=== PATIENT | female | born 1945 | race Caucasian/White ===

== ENCOUNTER → 2016-11-05 | Outpatient (CLI) | payer OTHER ==
[~2016-11-05] MED LIST: AMIO200T4 PO; ATOR-22 PO; CLOP1TAB15 PO; DILT-115 PO; DVN80 PO; ELQ25 PO; FENO48TA9 PO; HYDR-4717 PO; METO50TA16 PO; PANT40TA PO; RANI150T3 PO
[2016-11-05 13:40] VITALS: BP 175/78; PULSE 61; TEMP 37.2; O2SAT 95
--- NOTE | 2016-11-05 16:08 | Radiation Oncology Follow-Up ---
Radiation Oncology Follow-Up Date of Visit Nov 05, 2016. 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 She has noted no masses or tenderness and no change of the axilla. She's had no swelling of her arm. She is up-to-date on mammography. She had a mammogram at [facility] on 01/10/2016. This showed no evidence of breast malignancy. A diagnostic mammogram is recommended in 12 months. BI-RADS Category 2. Allergies Coded Allergies: No Known Allergies (Unverified , 06/08/13) Home Medications Scheduled Apixaban (Eliquis), 5 MG PO BID Atorvastatin (Lipitor), 20 MG PO DAILY Clopidogrel (Plavix), 75 MG PO DAILY Diltiazem Hcl Ext Rel (Tiazac), 240 MG PO DAILY Fenofibrate (Tricor), 48 MG PO DAILY Metoprolol Tartrate (Lopressor) (Lopressor), 1 TAB PO BID Pantoprazole (Protonix), 40 MG PO DAILY Ranitidine Hcl (Zantac), 150 MG PO BID Valsartan (Diovan), 1 TAB PO BID Scheduled PRN Hydralazine Hcl (Apresoline), 25 MG PO BID PRN for Hypertension Review of Systems Gastrointestinal: Symptoms: WNL Oral: Symptoms: No Problems Respiratory: Symptoms: WNL Other Respiratory: 12 Cigs per day Urinary: Symptoms: WNL Skin: Symptoms: No Problems Breast: Right Upper Arm Measurement: 26.8 Right Mid Arm Measurement: 23.0 Right Wrist Measurement: 16.4 Left Upper Arm Measurement: 27.0 Left Mid Arm Measurement: 23.8 Left Wrist Measurement: 16.5 Arm Dominence: Right Physical Exam Vital Signs Date Time Temp Pulse Resp B/P (MAP) Pulse Ox O2 Delivery O2 Flow Rate FiO2 11/05/16 13:40 37.2 61 16 175/78 95 Fatigue: None General Appearance: no apparent distress Eyes: normal inspection, EOMI ENT: normal ENT inspection, hearing grossly normal Neck: no adenopathy Respiratory/Chest: lungs clear, no respiratory distress, no accessory muscle use Breast: Breast examination reveals well-healed incisions of the left breast. There are no masses or tenderness and no axillary adenopathy. She has no skin retractions or nipple changes. Using the [place] score cosmesis she has a excellent outcome. The right breast showed no masses or tenderness and no axillary adenopathy. Cardiovascular: regular rate, rhythm, no gallop, no murmur Extremities: no pedal edema Neurologic/Psychiatric: no motor/sensory deficits, alert, normal mood/affect Skin: warm/dry Additional Studies Mammography as reviewed above. Assessment & Plan Plan: Continue with scheduled mammography. Continue follow-up with her breast surgeon and primary care physician. Today we discussed smoke cessation. We have previously discussed weaning off the cigarettes. Last year she was down to 9 cigarettes per day. Currently she is a 12. She felt that she is having increased stress. I did give her a card today about the 1 800 quit line. I also offered to refer her to a smoke cessation program. She did not wish to be referred at this time. She'll continue to try to wean off of cigarettes. We asked her to return to our office in 1 year. Total Time In Follow-Up I spent 20 minutes speaking to the patient performing the examination. I spent 15 minutes reviewing information completing this note. Copy To Matias Paiz M.D.; Skinny Mccord M.D. Problem Qualifiers (1) Breast cancer: Breast location: upper outer quadrant of breast Estrogen receptor status: negative Patient sex: female Laterality: left Qualified Codes: C50.412 - Malignant neoplasm of upper-outer quadrant of left female breast; Z17.1 - Estrogen receptor negative status [ER-]
== END | disposition home or self-care (01) ==
LOC: C.ONC 13:32
PROVIDERS: ATTEND Physician Assistant Medical
DX: Z08 Encounter for follow-up examination after completed treatment for malignant neoplasm (principal); Z92.3 Personal history of irradiation; Z85.3 Personal history of malignant neoplasm of breast

== ENCOUNTER 2021-09-17 05:14 | Inpatient (IN) ==
--- NOTE | 2021-09-10 12:14 | PAT Medication Instructions ---
Medication Instructions Date of Service September 10, 2021 Home Medications rivaroxaban 20 mg tablet (Xarelto) 20 mg PO DAILY buspirone 7.5 mg tablet 7.5 mg PO BID furosemide 20 mg tablet (Lasix) 20 mg PO QAM hydralazine 25 mg tablet 25 mg PO Q8H PRN Nausea And Vomiting lansoprazole 30 mg capsule,delayed release 30 mg PO QAM losartan 100 mg tablet 100 mg PO QAM ondansetron 4 mg disintegrating tablet 4 mg PO Q8H atorvastatin 20 mg tablet 20 mg PO QAM clopidogrel 75 mg tablet 75 mg PO QAM diltiazem HCl 240 mg capsule,24 hr,extended release 240 mg PO QAM metoprolol tartrate 100 mg tablet 100 mg PO BID nitrofurantoin macrocrystal 100 mg capsule 100 mg PO QAM Continue as directed nitrofurantoin macrocrystal 100 mg capsule 100 mg PO QAM ASK your prescriber and surgeon rivaroxaban 20 mg tablet (Xarelto) 20 mg PO DAILY clopidogrel 75 mg tablet 75 mg PO QAM DO NOT take the morning of surgery furosemide 20 mg tablet (Lasix) 20 mg PO QAM losartan 100 mg tablet 100 mg PO QAM Take morning of surgery With a small sip of water, OTHERWISE NOTHING TO EAT OR DRINK AFTER MIDNIGHT: buspirone 7.5 mg tablet 7.5 mg PO BID diltiazem HCl 240 mg capsule,24 hr,extended release 240 mg PO QAM metoprolol tartrate 100 mg tablet 100 mg PO BID ondansetron 4 mg disintegrating tablet 4 mg PO Q8H PRN Nausea and Vomiting (if needed) atorvastatin 20 mg tablet 20 mg PO QAM hydralazine 25 mg tablet 25 mg PO TID lansoprazole 30 mg capsule,delayed release 30 mg PO QAM Take evening before surgery buspirone 7.5 mg tablet 7.5 mg PO BID metoprolol tartrate 100 mg tablet 100 mg PO BID ondansetron 4 mg disintegrating tablet 4 mg PO Q8H PRN Nausea and Vomiting (if needed) hydralazine 25 mg tablet 25 mg PO TID Other Notes If you have any questions please call us at [phone] or [phone] or [phone] or [phone]
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
[2021-09-17] MEDS ORDERED: CEFAZOLIN 1,000 MG/7.5 ML SYR IV SCH (06:00)
[2021-09-17] MEDS ORDERED: SODIUM CHLORIDE 0.9% 1000ML 1,000 ML IV SCH (06:00)
[2021-09-17 06:22] LABS: Calcium 9.2 mg/dl (8.5-10.1); Creatinine Clr Calc Pharmacy 41.7 ml/min; Est GFR (African American) 62.5 ml/min; Est GFR (Non-African American) 53.9 ml/min; Potassium 4.1 mmol/L (3.5-5.1)
[2021-09-17] MEDS ORDERED: NITROGLYCERIN/D5W 100MCG/ML 20ML SYR ONE (06:45)
[2021-09-17] MEDS ORDERED: HEPARIN (PORCINE) 1000 UNIT/ML 10 ML (CATH LAB USE ONLY) ONE (06:59)
[2021-09-17] MEDS ORDERED: LIDOCAINE 1% LOCAL 20 ML VIAL ONE (06:59)
[2021-09-17] MEDS ORDERED: ceFAZolin 330 MG/ML 1 GM VIAL ONE (06:59)
[2021-09-17] MEDS ORDERED: GELATIN SPONGE SZ 100 ONE (07:00)
[2021-09-17] MEDS ORDERED: THROMBIN FOR SOLN 20000 UNIT KIT ONE (07:00)
[2021-09-17] MEDS ORDERED: EPINEPHrine INJ 1 MG/ML AMP ONE (07:00)
[2021-09-17] MEDS ORDERED: BUPIVACAINE 0.5 % 5 MG/1 ML MPF 30ML VIAL ONE (07:00)
[2021-09-17] MEDS ORDERED: PROPOFOL IV EMULSION 10 MG/ML 20 ML VIAL IV ONE ×2 (07:12→09:08)
[2021-09-17] MEDS ORDERED: fentaNYL citrate 100 MCG/2 ML VIAL ONE (07:12)
[2021-09-17] MEDS ORDERED: HEPARIN SOD (PORCINE) 1000 UNIT/ML ONE (07:12)
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
[2021-09-17] MEDS ORDERED: ROCURONIUM BROMIDE 10 MG/ML 5 ML VIAL IV ONE (08:04)
[2021-09-17] MEDS ORDERED: ePHEDrine sulfate 50 MG/ML SYR ONE (08:04)
[2021-09-17] MEDS ORDERED: LIDOCAINE 2% 2 ML VIAL/AMP(20MG/ML) INFIL ONE (08:04)
[2021-09-17] MEDS ORDERED: DEXAMETHASONE SOD INJ 4 MG/ML VIAL ONE (09:19)
[2021-09-17] MEDS ORDERED: ONDANSETRON INJ 2 MG/ML 2 ML VIAL ONE (09:19)
[2021-09-17] MEDS ORDERED: NEOSTIGMINE METHYLSULFATE 1 MG/ML 10ML VIAL ONE (09:21)
--- NOTE | 2021-09-17 09:45 | Operative Report ---
Post Operative Report Pre & Post Diagnosis Operation Date: 09/17/21 07:30 Pre-Op Diagnosis: Stenosis of Left Internal Carotid Artery Post-Op Diagnosis: Stenosis of Left Internal Carotid Artery I identified the patient and participated in the time-out.: Yes Procedure Operation Date: 09/17/21 07:30 Actual Procedures p Left Interanl Carotid Endarterectomy with bovine patch(Left) - Gonzalo Starks MD Surgeon Goznalo Starks MD Anaesthetic Technician none Estimated Blood Loss 100 Findings Consistent with Post-Op Diagnosis Specimens plaque Anesthesia Type General Complications none Disposition Accompanied Patient To Recovery: Yes Disposition: Recovery Room Indications Patient is a 76yo female with severe bilateral carotid artery stenosis. Left carotid was recommended being it was the tighter of the two carotids. I have discussed the risks options and benefits of the procedure with the patient. The patient understands the risks options and benefits and agrees to the procedure. Description of Procedure The patient was taken to the operating room and placed in supine position. After general anesthesia was accomplished the left side of the neck was prepped and draped in a sterile manner. The patient was identified and a timeout performed. A longitudinal neck incision was then made coursing along the medial border of the sternocleidomastoid muscle. The incision was taken down through the platysmal layer. The facial vein was identified, ligated, and divided. The common carotid artery was then seen. It was dissected free down to the omohyoid muscle. The dissection was carried upward until the external carotid artery and superior thyroid artery was seen. The superior thyroid artery was slung with a 2-0 silk suture. The external carotid was slung with a red rubber vessel loop. Next the dissection was carried up along the internal carotid artery. This was carried upward to beyond the area of narrowing. The hypoglossal nerve was seen and preserved. The patient was heparinized. After adequate heparinization was accomplished, the internal, external, and common carotid arteries were clamped. A longitudinal arteriotomy was started on the common carotid artery and extended upward along the internal carotid artery to a point beyond the area of narrowing. There was calcified plaque of the internal carotid artery origin causing approximately 85-90% narrowing. A Sundt shunt was then placed in the internal, followed by the common carotid artery and held in place with Abdias clamps. There was good back bleeding seen from the internal carotid artery. The endarterectomy was then started in the appropriate plane on the common carotid artery. This was carried upward and the external carotid was everted and endarterectomized. The endarterectomy was then carried up along the internal carotid artery till a nice feathering breakoff point was accomplished beyond the end of the plaque. The endarterectomy was then carried down further on the common carotid artery. At end of the arteriotomy, the plaque was then transected. Under loop magnification, all loose debris and flaps werer removed. There is no distal flap seen at the end of the endarterectomy site. The arteriotomy then closed using a bovine patch and a running 6-0 prolene suture. This was done in the usual vascular fashion. Prior to completing the closure, the Sundt shunt was removed and the internal and common carotid arteries were reclamped. Backbleeding and forward bleeding was allowed to occur. The flow surface was irrigated with heparinized saline. The final few sutures were then placed and securely tied. Clamps were then removed off the external and common carotid arteries. The clamp was then removed the internal carotid artery. Good distal flow was seen. Adequate hemostasis was seen of the patch. The wound was inspected and adequate hemostasis was obtained. The wound was irrigated with antibiotic solution. It was then closed with a running 3-0 Vicryl suture for the platysmal layer and a 4-0 subcuticular Vicryl suture for the skin edges. Dermabond was used for dressing. The patient left the operation room in satisfactory condition and tolerated the procedure well. All needle and sponge counts were correct at the end of the procedure. I attest to the content of the Intraoperative Record and any orders documented therein. Any exceptions are noted below.
[2021-09-17] MEDS ORDERED: FLUMAZENIL 0.1 MG/1 ML 10 ML VIAL IV PRN (09:53)
[2021-09-17] MEDS ORDERED: NALOXONE HCL 0.4 MG/1 ML VIAL/CARP IV PRN (09:53)
[2021-09-17] MEDS ORDERED: ATROPINE SULFATE 0.1 MG/ML 10ML SYR IV PRN (09:53)
[2021-09-17] MEDS ORDERED: ePHEDrine sulfate 50 MG/ML AMP IV PRN (09:53)
[2021-09-17] MEDS ORDERED: fentaNYL citrate 100 MCG/2 ML VIAL IV PRN (09:53)
[2021-09-17] MEDS ORDERED: ONDANSETRON INJ 2 MG/ML 2 ML VIAL IV PRN (09:53)
[2021-09-17] MEDS ORDERED: PROMETHAZINE HCL 12.5 MG in SODIUM CHLORIDE 0.9% 50 ML IV PRN (09:53)
--- NOTE | 2021-09-17 10:19 | Anesthesiology Progress Note ---
Date of Service September 17, 2021 Anesthesia Post Procedure Vital Signs Vital Signs: Temp Pulse Pulse Resp BP BP Pulse Ox 09/17/21 10:10 60 21 174/51 H 157/64 H 96 09/17/21 10:00 60 22 172/55 H 166/61 H 100 09/17/21 09:50 60 17 166/49 H 164/61 H 100 09/17/21 09:44 36.0 C L 60 12 169/70 H 100 09/17/21 05:42 36.2 C L 59 L 20 150/60 H 93 O2 Del Method O2 Flow Rate 09/17/21 10:10 Room Air 09/17/21 10:00 Oxymask 6 09/17/21 09:50 Oxymask 6 09/17/21 09:44 Oxymask 6 09/17/21 05:42 Room Air Transfer of Care Handoff Completed per policy Notes Mental Status: alert / awake / arousable Patient Amnestic to Procedure: Yes Nausea / Vomiting: adequately controlled Pain: adequately controlled Airway Patency, RR, SpO2: stable & adequate BP & HR: stable & adequate Hydration State: stable & adequate Anesthetic Complications: no major complications apparent
[2021-09-17] MEDS ORDERED: D5W AND 1/2NSS 1,000 ML IV SCH (11:48)
[2021-09-17] MEDS ORDERED: MoRPHine SULFATE 4 MG/ML 1 ML CARP\\VIAL IV PRN (11:48)
[2021-09-17] MEDS ORDERED: ONDANSETRON 4 MG OD TAB PO PRN (11:48)
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
[2021-09-17] MEDS: hydrALAZINE HCL 25 MG TAB PO SCH ×2 (13:50→20:52)
[2021-09-17] MEDS: ceFAZolin 1000MG 1,000 MG/7.5 ML SYR IV SCH ×2 (13:51→22:04)
[2021-09-17] MEDS ORDERED: LOSARTAN POTASSIUM 50 MG TAB PO ONE (14:15)
[2021-09-17] MEDS: oxyCODONE/ACETAMINOPHEN 5mg/325mg TAB PO PRN ×2 (15:00→22:03)
[2021-09-17] MEDS ORDERED: nitrofurantoin macrocrystaL 50 MG CAP PO SCH (18:00)
[2021-09-17] MEDS: METOPROLOL TARTRATE 100 MG TAB PO SCH (20:51)
[2021-09-17] MEDS: busPIRone 7.5 MG TAB PO SCH (20:52)
[2021-09-17] MEDS ORDERED: ATORVASTATIN 20 MG TAB PO SCH (21:00)
[2021-09-18] MEDS: oxyCODONE/ACETAMINOPHEN 5mg/325mg TAB PO PRN (05:28)
[2021-09-18 05:42] LABS: Basophils # (auto) 0.03 K/uL (0-0.2); Basophils % (auto) 0.3 %; Hematocrit (blood only) 33.6 % (34.1-44.9); Hemoglobin 10.7 g/dl (12.0-16.0); Immature Granulocytes # (auto) 0.05 K/uL (0.00-0.02); Immature Granulocytes % (auto) 0.4 %; Mean Corpuscular Hemoglobin 31.5 pg (25.0-34.0); Mean Corpuscular Hgb Conc 31.8 g/dL (32.0-36.0); Mean Corpuscular Volume 98.8 fL (80.0-100.0); Mean Platelet Volume 10.9 fL (9.4-12.3); Monocytes # (auto) 0.69 K/uL (0.24-0.82); Neutrophils # (auto) 9.87 K/uL (1.4-6.5); Neutrophils % (auto) 86.3 %; Platelet Count 194 K/uL (130-400); RDW Coefficient of Variation 14.6 % (11.5-14.5); RDW Standard Deviation 52.9 fL (36.4-46.3); White Blood Count 11.44 K/ul (4.8-10.8)
[2021-09-18 06:00] LABS: BUN Creatinine Ratio 21.5 (10-20); Calcium 8.5 mg/dl (8.5-10.1); Creatinine Clr Calc Pharmacy 52.8 ml/min; Est GFR (African American) 83.1 ml/min; Est GFR (Non-African American) 71.7 ml/min; Magnesium 1.9 mg/dl (1.7-2.4); Phosphorus 3.4 mg/dl (2.5-4.9); Potassium 4.3 mmol/L (3.5-5.1)
[2021-09-18 06:05] VITALS: TEMP 97.9
[2021-09-18] MEDS: busPIRone 7.5 MG TAB PO SCH (07:27)
[2021-09-18] MEDS: METOPROLOL TARTRATE 100 MG TAB PO SCH (07:27)
[2021-09-18] MEDS: hydrALAZINE HCL 25 MG TAB PO SCH (07:28)
--- NOTE | 2021-09-18 07:58 | Critical Care Progress Note ---
Date of Service September 18, 2021 Assessment & Plan (1) Carotid artery disease: (2) Hypertension: (3) Hypercholesteremia: Plan Impression: 76-year-old female with asymptomatic carotid stenosis, postop day 1 left carotid endarterectomy. Recommendations: 1. Left carotid endarterectomy: Postoperative management per vascular surgery. 2. Hypertension: Continue antihypertensives with blood pressure goals as delineated by vascular surgery. 3. Hyperlipidemia: Continue lipid-lowering agent. 4. Mild anemia and leukocytosis. Suspect reactive. No indication for transfusion. Continue to follow clinically. She is afebrile. Can discontinue arterial line at this point in time. Patient's critical care issues appear to have resolved. We will sign off at this point time. Feel free to contact us if we can be of additional assistance. Admission and Anticipated Discharge Date Admission Date: September 17, 2021 Subjective Patient seen and examined. EMR reviewed. Discussed with bedside critical care nurse. The patient is up eating breakfast in the chair this morning. She is complaining of some mild tenderness in her neck. No voice changes or swallowing difficulties. No new neurological complaints. She just took her blood pressure medicines this morning. Review of Systems Review of Systems: All systems reviewed & are unremarkable except as noted in Subjective Physical Exam Constitutional: WD/WN, vitals as above Neck: trachea midline, no thyromegaly Respiratory: normal respiratory effort, lungs clear to auscultation Cardiovascular: RRR, no murmur, no edema Gastrointestinal (Abdomen): normal bowel sounds, soft, nontender, no hepatosplenomegaly Musculoskeletal: Extremities: extremities normal to inspection Skin: no rashes, warm and dry Lymphatic: no cervical lymphadenopathy Results & Data Results & Data ([facility]) Vital Signs (Past 12 Hours) Vital Signs Temp Pulse Pulse Resp BP BP BP 09/18/21 07:45 63 20 09/18/21 07:30 63 16 09/18/21 07:15 60 17 09/18/21 07:14 62 14 09/18/21 07:14 166/89 H 09/18/21 07:00 60 18 09/18/21 07:00 36.6 C 64 18 184/87 H 166/89 H 09/18/21 06:00 36.6 C 61 16 09/18/21 05:00 60 18 09/18/21 04:30 61 16 09/18/21 04:00 62 19 09/18/21 04:00 134/65 09/18/21 03:30 61 16 09/18/21 03:00 60 16 09/18/21 02:30 64 15 09/18/21 02:00 60 15 09/18/21 02:00 152/74 H 09/18/21 01:00 60 11 L 09/18/21 00:30 63 10 L 09/18/21 00:01 60 18 09/18/21 00:01 143/60 H 09/18/21 00:00 60 18 09/17/21 23:00 36.5 C 60 16 09/17/21 23:39 60 09/17/21 22:00 36.5 C 60 18 09/17/21 22:00 126/56 L 09/17/21 21:30 64 18 09/17/21 21:10 09/17/21 20:30 60 16 09/17/21 20:00 60 20 09/17/21 20:00 111/54 L Pulse Ox O2 Del Method 09/18/21 07:45 90 09/18/21 07:30 93 09/18/21 07:15 91 09/18/21 07:14 91 09/18/21 07:14 09/18/21 07:00 90 09/18/21 07:00 90 Room Air 09/18/21 06:00 90 09/18/21 05:00 90 09/18/21 04:30 92 09/18/21 04:00 09/18/21 04:00 09/18/21 03:30 93 09/18/21 03:00 91 09/18/21 02:30 90 09/18/21 02:00 90 09/18/21 02:00 09/18/21 01:00 92 09/18/21 00:30 92 09/18/21 00:01 93 09/18/21 00:01 09/18/21 00:00 93 09/17/21 23:00 91 09/17/21 23:39 09/17/21 22:00 93 Room Air 09/17/21 22:00 09/17/21 21:30 90 Room Air 09/17/21 21:10 92 09/17/21 20:30 94 09/17/21 20:00 92 09/17/21 20:00 Laboratory Results 09/18/21 05:21 09/18/21 05:21 Diagnostic Findings No new imaging Coding Level of Care Code 33750 Subseq Hosp Care Lvl 2 Diagnoses Carotid artery disease I77.9 Hypertension I10 Hypercholesteremia E78.00
[2021-09-18] MEDS ORDERED: LOSARTAN POTASSIUM 50 MG TAB PO SCH (09:00)
[2021-09-18] MEDS ORDERED: PANTOprazole 40 MG TAB PO SCH (09:00)
[2021-09-18] MEDS ORDERED: CLOPIDOGREL BISULFATE 75 MG TAB PO SCH (09:00)
[2021-09-18] MEDS ORDERED: dilTIAZem HCL 240 MG CAPCR PO SCH (09:00)
[2021-09-18] MEDS ORDERED: RIVAROXABAN 20 MG TAB PO SCH (09:00)
[2021-09-18] MEDS ORDERED: FUROSEMIDE 20 MG TAB PO SCH (09:00)
--- NOTE | 2021-09-18 10:39 | Surgery Progress Note ---
Date of Service September 18, 2021 Assessment & Plan (1) S/P carotid endarterectomy: Plan: Patient doing well post op CEA. D/C today Admission and Anticipated Discharge Date Admission Date: September 17, 2021 Subjective Patient without complaint. No problems swallowing and eating. No speech difficulty. No focal deficits. Physical Exam Constitutional: WD/WN, vitals as above Neck: trachea midline Skin: + incision (dry and clean) Neurologic: CN's II-XI intact bilaterally and moves all extremities Psychiatric: A+Ox3, euthymic affect Results & Data ([facility]) Vital Signs (Past 12 Hours) Vital Signs Temp Pulse Pulse Resp BP BP BP 09/18/21 08:00 09/18/21 08:00 63 09/18/21 08:00 68 09/18/21 07:45 63 20 09/18/21 07:30 63 16 09/18/21 07:15 60 17 09/18/21 07:14 62 14 09/18/21 07:14 166/89 H 09/18/21 07:00 60 18 09/18/21 07:00 36.6 C 64 18 184/87 H 166/89 H 09/18/21 06:00 36.6 C 61 16 09/18/21 05:00 60 18 09/18/21 04:30 61 16 09/18/21 04:00 62 19 09/18/21 04:00 134/65 09/18/21 03:30 61 16 09/18/21 03:00 60 16 09/18/21 02:30 64 15 09/18/21 02:00 60 15 09/18/21 02:00 152/74 H 09/18/21 01:00 60 11 L 09/18/21 00:30 63 10 L 09/18/21 00:01 60 18 09/18/21 00:01 143/60 H 09/18/21 00:00 60 18 09/17/21 23:00 36.5 C 60 16 09/17/21 23:39 60 Pulse Ox O2 Del Method 09/18/21 08:00 Room Air 09/18/21 08:00 09/18/21 08:00 09/18/21 07:45 90 09/18/21 07:30 93 09/18/21 07:15 91 09/18/21 07:14 91 09/18/21 07:14 09/18/21 07:00 90 09/18/21 07:00 90 Room Air 09/18/21 06:00 90 09/18/21 05:00 90 09/18/21 04:30 92 09/18/21 04:00 09/18/21 04:00 09/18/21 03:30 93 09/18/21 03:00 91 09/18/21 02:30 90 09/18/21 02:00 90 09/18/21 02:00 09/18/21 01:00 92 09/18/21 00:30 92 09/18/21 00:01 93 09/18/21 00:01 09/18/21 00:00 93 09/17/21 23:00 91 09/17/21 23:39
[2021-09-18 10:48] VITALS: O2SAT 92
[2021-09-18 10:55] VITALS: BP 166/89; PULSE 64
--- NOTE | 2021-09-21 10:38 | Discharge Summary ---
Date of Service September 21, 2021 Admission HPI Per Admitting Provider Name: ANDREWS RODRIGUEZ Patient Number: [id number] : 1945 Date of Service: 09/03/2021 Chief Complaint: _New patient consultation for carotid stenosis HPI: _Mrs. Rodriguez is an elderly female who presents to Dr. Starks's vascular surgery clinic today for a new patient consultation regarding carotid stenosis. Patient states she has known for some years that she has some degree of carotid stenosis, but was advised to see Dr. Starks after her most recent ultrasound and CTA indicated some worsening of her carotid disease. Patient denies any history of CVA or TIA in the past. She also denies any recent symptoms of dizziness, amaurosis, unilateral headache, unilateral extremity weakness numbness or tingling, difficulty speaking or swallowing, sudden onset confusion, facial droop. She also denies fever, chest pain, shortness of breath, Abdominal pain, nausea, vomiting, rest pain, claudication, nonhealing wounds or ulcers other complaints. She does state that she was told in the past she has a blockage in an artery in her right leg, but that it did not need to have any surgery since she was not having any problems walking. Review of systems: A total of 14 systems were reviewed and are negative aside from what is related in her HPI Imaging: Patient underwent a carotid ultrasound which indicates significant stenosis of her bilateral internal carotid arteries, as well as her right common carotid artery. She then underwent a CTA which demonstrates 85 to 90% stenosis of her left ICA, and about 75 to 80% stenosis of her right common carotid artery. Current Home Meds: (Last Updated 09/03 15:35) atorvastatin (atorvastatin 20 mg oral tablet) 20 mg PO qhs busPIRone (busPIRone 7.5 mg oral tablet) take 1 tablet by mouth twice a day clopidogrel (clopidogrel 75 mg oral tablet) take 1 tablet by mouth once daily dilTIAZem (DilTIAZem (Eqv-Cardizem CD) 240 mg/24 hours oral capsule, extended release) take 1 capsule by mouth once daily furosemide (furosemide 20 mg oral tablet) take 1 tablet by mouth once daily hydrALAZINE (hydrALAZINE 25 mg oral tablet) take 1 tablet by mouth three times a day lansoprazole (lansoprazole 30 mg oral delayed release capsule) 30 mg PO Daily losartan (losartan 100 mg oral tablet) take 1 tablet by mouth once daily metoprolol (Metoprolol Tartrate 100 mg oral tablet) take 1 tablet by mouth twice a day nitrofurantoin (nitrofurantoin macrocrystals-monohydrate 100 mg oral capsule) take 1 capsule by mouth every 12 hours ondansetron (ondansetron 4 mg oral tablet) take 1 tablet by mouth every 8 hours if needed for nausea rivaroxaban (Xarelto 20 mg oral tablet) 20 mg PO qPM Allergies and Sensitivities: irbesartan(Rash) spironolactone(Rash) sotalol(Edema of lower extremity) sotalol(Hypertension) Past Medical History: Problems: Carotid stenosis Atrial fibrillation Hypertension Coronary artery disease Gastroesophageal reflux disease Hyperlipidemia Breast cancer Surgical history: Positive for breast biopsy, lumpectomy, colonoscopy, lymph node removal Family history: Positive for coronary artery disease, hypertension, diabetes. Social history: Patient smoked 1/2 to 1 pack of cigarettes daily for 50 years. She does not drink alcohol or use illicit drugs. OBJECTIVE Vitals: Last Updated 09/03/21 15:39 Date Temp BP Location Pulse RR SpO2 Pain 09/03/21 216/84 Right Arm 60 98 Vital Signs are the last 3 documented. No Orthostatic Data Available Height and Weight: Last Updated 09/03/21 15:39 Date BMI Wt(kg) Wt(lb) Method Ht(cm) (ft-in) Method 09/03/21 70.8 156 Standing Scale Heights and Weights are the last 3 documented. Physical Exam Constitutional: In general patient is a healthy-appearing well-nourished well- developed elderly female no distress. She is alert and oriented without any focal deficits. Head is normocephalic and atraumatic. Her neck is supple nontender with midline trachea. She does have bilateral carotid bruits. Her heart is regular, her lungs are decreased but clear throughout. Her abdomen is soft nontender with normoactive bowel sounds in 4 quadrants. There is no pulsatile mass appreciable. Her brachial radial and femoral pulses are +3. Her right posterior tibial pulse is +3, her DP is +1. Her left DP and PT pulses are +2. She has brisk capillary refill and no sign of distal ischemia. She does have mild edema at the ankles and some signs of venous insufficiency. ASSESSMENT: _ PLAN: _ 1 ) _carotid stenosis Patient is asymptomatic from her carotid stenosis, but appears to have at least 85 to 90% stenosis of her left ICA, as well as 75 to 80% stenosis of her right common carotid artery. Dr. Starks also reviewed the patient's imaging and recommends that patient undergo a left carotid endarterectomy procedure. The procedure, risks, benefits and alternatives were discussed with the patient by Dr. Starks and myself. Patient is agreeable to the procedure. We will contact her mobile marketing specialist for cardiac clearance, as well as perioperative Xarelto recommendations. Patient was advised to call our office with any other questions or concerns. Thank you for letting us participate in the care of this patient. Signature Line Electronic Signature on File CC: Andrew Servin MD [facility] [place] [id number] * CC: Skinny Mccord MD [address] [place] [address] * Electronically Reviewed/Signed by: Giselle De La Cruz PA-C Author Signature Dt/Tm:09/03/2021 05:01 PM [facility] [address] [facility] [address] [id number] Electronically Reviewed/Signed by: Gonzalo Starks MD Cosigner Signature Dt/Tm: 09/04/2021 07:31 AM Net Rep[employer]r [address] [address] LM Result Type: HVI Outpt Note Date of Service: September 03, 2021 16:53 EDT Authorization Status: Final Author or Import Date: ANDRE De La Cruz Lynn on September 03, 2021 17:01 EDT Verified By: MD Starks Eugene J on September 04, 2021 07:31 EDT Encounter info: [id number], [place] [address], Clinic, 09/03/2021 - 09/03/2021 Admission Exam Per Admitting Provider Constitutional: In general patient is a healthy-appearing well-nourished well- developed elderly female no distress. She is alert and oriented without any focal deficits. Head is normocephalic and atraumatic. Her neck is supple nontender with midline trachea. She does have bilateral carotid bruits. Her heart is regular, her lungs are decreased but clear throughout. Her abdomen is soft nontender with normoactive bowel sounds in 4 quadrants. There is no pulsatile mass appreciable. Her brachial radial and femoral pulses are +3. Her right posterior tibial pulse is +3, her DP is +1. Her left DP and PT pulses are +2. She has brisk capillary refill and no sign of distal ischemia. She does have mild edema at the ankles and some signs of venous insufficiency. Principal Diagnosis Left internal carotid artery stenosis Left carotid endarterectomy Discharge Exam Constitutional WD/WN, vitals as above Neck trachea midline Skin + incision (dry and clean) Neurologic CN's II-XI intact bilaterally and moves all extremities Psychiatric A+Ox3, euthymic affect Discharge Data Allergies Allergy/AdvReac Type Severity Reaction Status Date / Time sotalol [From Betapace] AdvReac Severe Increases Verified 09/17/21 05:41 BP, Swelling in Legs & Feet spironolactone AdvReac Severe Rash on Verified 09/17/21 05:41 lower legs irbesartan AdvReac Intermediate Itchy Rash Verified 09/17/21 05:41 Consultations 09/17/21 11:48 Consult Race Engine Builder Routine Procedures Performed Operation Date: 09/17/21 07:30 Actual Procedures p Left Interanl Carotid Endarterectomy(Left) - Gonzalo Starks MD Hospital Course (1) S/P carotid endarterectomy: Patient doing well post op CEA. D/C today Total Time Total Time Spent Total Time Spent (In Minutes): 0 Discharge Plan Discharge Items Patient Disposition: Home - Self-Care Reason For Visit: Occlusion and Stenosis or Carotid Artery Discharge Diagnosis: Left internal carotid stenosis, left carotid endarterectomy Activity: Per Instructions section Non-emergency contact: Surgeon Call non-emergency contact if: your temperature is above 101.5, your wound has increased redness, your wound has increased drainage and your wound pain has increased Follow-up/Referrals: Skinny Mccord [Primary Care Provider] - (Follow up appointment scheduled with HELLEN Arauz.) Thais Cordoba CRNP [Outside Practitioners] - 09/26/21 3:00 pm (Please follow up with HELLEN Arauz on Friday09/26/21 at 3:00 pm. Please arrive to the office at 2:45 pm for your appointment. If you are unable to keep this appointment, please call the office to reschedule at [phone].) Diet: Heart Healthy Addtl Attending Provider Instructions: SPECIAL CARE INSTRUCTIONS: Medications: * Continue to take Aspirin as directed. Incision Care: * You may shower, but do not rub incision. You may let the warm soapy water run over it. Be sure to dry the incision well after bathing. * Do not shave directly over the incision until it is healed. * DO NOT IMMERSE THE INCISION IN A TUB/POOL/etc. UNTIL HEALED. Restrictions: * Do not drive for at least one week or if you are still taking any narcotic pain medication. * Do not lift anything heavier than a gallon of milk for one week after going home. Possible Complications: * Numbness - It is normal to have some numbness around the incision. Numbness can extend beyond the incision to areas of the neck, ear and face. The numbness is due to bruising of nerves during the surgery and will gradually improve over a period of months. * Hoarseness/Difficulty Speaking and Swallowing - The bruising of nerves in the neck can also cause a hoarse voice, difficulty speaking or swallowing. This may improve over time, HOWEVER, if it continues for more than a few days please contact our office ([phone]). * Excessive Swelling - There will be some swelling immediately after surgery which usually resolves within one week. If you notice that the swelling is getting worse, notify your surgeon ([phone]). * Drainage/Bleeding - If there is any drainage or bleeding, it should be a very small amount (less than a teaspoon per day). If you have excessive bleeding or drainage from the incision, call your surgeon ([phone]) right away. ACTIVATION OF EMERGENCY MEDICAL SYSTEM: Call 911, immediately, if you experience any of the following: Warning Signs and Symptoms of Stroke: * Sudden numbness or weakness of the face, arm or leg, especially on one side of the body * Sudden confusion, trouble speaking or understanding * Sudden trouble seeing in one or both eyes * Sudden trouble walking, dizziness, loss of balance or coordination * Sudden severe headache with no cause Do not delay calling 911 if you experience any warning signs or symptoms of a stroke. Delay in seeking medical attention may affect what treatments can be given to you. Risk Factors for Stroke: You can reduce your chances of stroke by working with your medical provider to adopt a healthy lifestyle. Some specific ways to lower your chance of stroke are: * If you are a smoker, now is the time to stop smoking cigarettes * If you are diabetic, improve the control of your blood sugars * Avoid excessive amounts of alcohol * Control high blood pressure * Lose weight if you are overweight * Be sure to lead an active lifestyle * Eat a healthy diet low in salt, cholesterol and fat You should know about other risk factors for stroke that you are unable to control. These include: * Age 55 years or older * Male gender * Certain racial groups: , or / * Family History of Stroke, Mini stroke or Heart Attack * Sickle Cell Disease You will be receiving a call from the Vascular Surgery Nurse after you are discharged. FOLLOW UP VISIT: It is important for you to keep your follow up appointments with your medical provider. Keep any scheduled doctor appointments. Call [phone] to schedule a follow up appointment if one not already scheduled. Pending Studies at Discharge: No Stand-Alone Forms: My [facility], Smoking Cessation Medications and DC Order Prescriptions: New tramadol 50 mg tablet 50 mg PO Q12H PRN (Reason: pain) Qty: 7 0RF Continued rivaroxaban [Xarelto] 20 mg tablet 20 mg PO DAILY hydralazine 25 mg tablet 25 mg PO TID furosemide [Lasix] 20 mg tablet 20 mg PO QAM losartan 100 mg tablet 100 mg PO QAM buspirone 7.5 mg tablet 7.5 mg PO BID lansoprazole 30 mg capsule,delayed release(DR/EC) 30 mg PO QAM ondansetron 4 mg tablet,disintegrating 4 mg PO Q8H PRN (Reason: Nausea And Vomiting) nitrofurantoin macrocrystal 100 mg capsule 100 mg PO DAILY Rx Instructions: taken around 6 pm per pt, must administer with a meal/food atorvastatin 20 mg Tablet 20 mg PO QPM metoprolol tartrate 100 mg Tablet 100 mg PO BID diltiazem HCl 240 mg Capsule,Extended Release 24 Hr 240 mg PO QAM clopidogrel 75 mg Tablet 75 mg PO QAM Discharge Orders: Discharge Order (Routine); Ordered 09/18/21 Ordered By: Gonzalo Soares/Other Patient Handouts: Having Carotid Endarterectomy, Carotid EndarterectomyDc, Carotid Artery Disease Admission Data Admit Date/Time: 09/17/21 07:17 Attending Provider: Gonzalo Starks Admit Provider: Gonzalo Starks Primary Care Provider: Skinny Mccord Other Providers: Urbano Paredes ; Breezy Asencio ; Leandro Wells ; Rex Hendricks ; Fracisco Drake ; Jose Miguel Ross ; Tigre Mallory ; John Small ; Sandy Carroll Other Interventions: Discharge Summary Assessment (RN) Last Done: 09/18/21 10:52
--- NOTE | 2021-09-24 08:33 | Discharge Summary ---
Date of Service September 24, 2021 Admission HPI Per Admitting Provider Name: ANDREWS RODRIGUEZ Patient Number: [id number] : 1945 Date of Service: 09/03/2021 Chief Complaint: _New patient consultation for carotid stenosis HPI: _Mrs. Rodriguez is an elderly female who presents to Dr. Starks's vascular surgery clinic today for a new patient consultation regarding carotid stenosis. Patient states she has known for some years that she has some degree of carotid stenosis, but was advised to see Dr. Starks after her most recent ultrasound and CTA indicated some worsening of her carotid disease. Patient denies any history of CVA or TIA in the past. She also denies any recent symptoms of dizziness, amaurosis, unilateral headache, unilateral extremity weakness numbness or tingling, difficulty speaking or swallowing, sudden onset confusion, facial droop. She also denies fever, chest pain, shortness of breath, Abdominal pain, nausea, vomiting, rest pain, claudication, nonhealing wounds or ulcers other complaints. She does state that she was told in the past she has a blockage in an artery in her right leg, but that it did not need to have any surgery since she was not having any problems walking. Review of systems: A total of 14 systems were reviewed and are negative aside from what is related in her HPI Imaging: Patient underwent a carotid ultrasound which indicates significant stenosis of her bilateral internal carotid arteries, as well as her right common carotid artery. She then underwent a CTA which demonstrates 85 to 90% stenosis of her left ICA, and about 75 to 80% stenosis of her right common carotid artery. Current Home Meds: (Last Updated 09/03 15:35) atorvastatin (atorvastatin 20 mg oral tablet) 20 mg PO qhs busPIRone (busPIRone 7.5 mg oral tablet) take 1 tablet by mouth twice a day clopidogrel (clopidogrel 75 mg oral tablet) take 1 tablet by mouth once daily dilTIAZem (DilTIAZem (Eqv-Cardizem CD) 240 mg/24 hours oral capsule, extended release) take 1 capsule by mouth once daily furosemide (furosemide 20 mg oral tablet) take 1 tablet by mouth once daily hydrALAZINE (hydrALAZINE 25 mg oral tablet) take 1 tablet by mouth three times a day lansoprazole (lansoprazole 30 mg oral delayed release capsule) 30 mg PO Daily losartan (losartan 100 mg oral tablet) take 1 tablet by mouth once daily metoprolol (Metoprolol Tartrate 100 mg oral tablet) take 1 tablet by mouth twice a day nitrofurantoin (nitrofurantoin macrocrystals-monohydrate 100 mg oral capsule) take 1 capsule by mouth every 12 hours ondansetron (ondansetron 4 mg oral tablet) take 1 tablet by mouth every 8 hours if needed for nausea rivaroxaban (Xarelto 20 mg oral tablet) 20 mg PO qPM Allergies and Sensitivities: irbesartan(Rash) spironolactone(Rash) sotalol(Edema of lower extremity) sotalol(Hypertension) Past Medical History: Problems: Carotid stenosis Atrial fibrillation Hypertension Coronary artery disease Gastroesophageal reflux disease Hyperlipidemia Breast cancer Surgical history: Positive for breast biopsy, lumpectomy, colonoscopy, lymph node removal Family history: Positive for coronary artery disease, hypertension, diabetes. Social history: Patient smoked 1/2 to 1 pack of cigarettes daily for 50 years. She does not drink alcohol or use illicit drugs. OBJECTIVE Vitals: Last Updated 09/03/21 15:39 Date Temp BP Location Pulse RR SpO2 Pain 09/03/21 216/84 Right Arm 60 98 Vital Signs are the last 3 documented. No Orthostatic Data Available Height and Weight: Last Updated 09/03/21 15:39 Date BMI Wt(kg) Wt(lb) Method Ht(cm) (ft-in) Method 09/03/21 70.8 156 Standing Scale Heights and Weights are the last 3 documented. Physical Exam Constitutional: In general patient is a healthy-appearing well-nourished well- developed elderly female no distress. She is alert and oriented without any focal deficits. Head is normocephalic and atraumatic. Her neck is supple nontender with midline trachea. She does have bilateral carotid bruits. Her heart is regular, her lungs are decreased but clear throughout. Her abdomen is soft nontender with normoactive bowel sounds in 4 quadrants. There is no pulsatile mass appreciable. Her brachial radial and femoral pulses are +3. Her right posterior tibial pulse is +3, her DP is +1. Her left DP and PT pulses are +2. She has brisk capillary refill and no sign of distal ischemia. She does have mild edema at the ankles and some signs of venous insufficiency. ASSESSMENT: _ PLAN: _ 1 ) _carotid stenosis Patient is asymptomatic from her carotid stenosis, but appears to have at least 85 to 90% stenosis of her left ICA, as well as 75 to 80% stenosis of her right common carotid artery. Dr. Starks also reviewed the patient's imaging and recommends that patient undergo a left carotid endarterectomy procedure. The procedure, risks, benefits and alternatives were discussed with the patient by Dr. Starks and myself. Patient is agreeable to the procedure. 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 Patient was advised to call our office with any other questions or concerns. Thank you for letting us participate in the care of this patient. Signature Line Electronic Signature on File CC: Andrew Servin MD [place] [place] [id number] * CC: Skinny Mccord MD [address] [place] [address] * Electronically Reviewed/Signed by: Giselle De La Cruz PA-C Author Signature Dt/Tm:09/03/2021 05:01 PM [facility] [address] [id number] Electronically Reviewed/Signed by: Gonzalo Starks MD Cosigner Signature Dt/Tm: 09/04/2021 07:31 AM [facility] [address] [address] LM Result Type: HVI Outpt Note Date of Service: September 03, 2021 16:53 EDT Authorization Status: Final Author or Import Date: ANDRE De La Cruz Lynn on September 03, 2021 17:01 EDT Verified By: MD Starks Eugene J on September 04, 2021 07:31 EDT Encounter info: [id number], [place] [id number], Clinic, 09/03/2021 - 09/03/2021 Admission Exam Per Admitting Provider Constitutional: In general patient is a healthy-appearing well-nourished well- developed elderly female no distress. She is alert and oriented without any focal deficits. Head is normocephalic and atraumatic. Her neck is supple nontender with midline trachea. She does have bilateral carotid bruits. Her heart is regular, her lungs are decreased but clear throughout. Her abdomen is soft nontender with normoactive bowel sounds in 4 quadrants. There is no pulsatile mass appreciable. Her brachial radial and femoral pulses are +3. Her right posterior tibial pulse is +3, her DP is +1. Her left DP and PT pulses are +2. She has brisk capillary refill and no sign of distal ischemia. She does have mild edema at the ankles and some signs of venous insufficiency. Principal Diagnosis 1. s/p L CEA 2. LICAS Discharge Exam Constitutional WD/WN, vitals as above Neck trachea midline Skin + incision (dry and clean) Neurologic CN's II-XI intact bilaterally and moves all extremities Psychiatric A+Ox3, euthymic affect Discharge Data Allergies Allergy/AdvReac Type Severity Reaction Status Date / Time sotalol [From Betapace] AdvReac Severe Increases Verified 09/17/21 05:41 BP, Swelling in Legs & Feet spironolactone AdvReac Severe Rash on Verified 09/17/21 05:41 lower legs irbesartan AdvReac Intermediate Itchy Rash Verified 09/17/21 05:41 Consultations 09/17/21 11:48 Consult Director Of Real Estate Routine Procedures Performed Operation Date: 09/17/21 07:30 Actual Procedures p Left Interanl Carotid Endarterectomy(Left) - Gonzalo Starks MD Hospital Course (1) S/P carotid endarterectomy: Patient doing well post op CEA day #1. D/C today Total Time Total Time Spent Total Time Spent (In Minutes): 0 Discharge Plan Discharge Items Patient Disposition: Home - Self-Care Reason For Visit: Occlusion and Stenosis or Carotid Artery Discharge Diagnosis: Left internal carotid stenosis, left carotid endarterectomy Activity: Per Instructions section Non-emergency contact: Surgeon Call non-emergency contact if: your temperature is above 101.5, your wound has increased redness, your wound has increased drainage and your wound pain has increased Follow-up/Referrals: Skinny Mccord [Primary Care Provider] - (Follow up appointment scheduled with HELLEN Arauz.) Thais Cordoba CRNP [Outside Practitioners] - 09/26/21 3:00 pm (Please follow up with HELLEN Arauz on Friday09/26/21 at 3:00 pm. Please arrive to the office at 2:45 pm for your appointment. If you are unable to keep this appointment, please call the office to reschedule at [phone].) Diet: Heart Healthy Addtl Attending Provider Instructions: SPECIAL CARE INSTRUCTIONS: Medications: * Continue to take Aspirin as directed. Incision Care: * You may shower, but do not rub incision. You may let the warm soapy water run over it. Be sure to dry the incision well after bathing. * Do not shave directly over the incision until it is healed. * DO NOT IMMERSE THE INCISION IN A TUB/POOL/etc. UNTIL HEALED. Restrictions: * Do not drive for at least one week or if you are still taking any narcotic pain medication. * Do not lift anything heavier than a gallon of milk for one week after going home. Possible Complications: * Numbness - It is normal to have some numbness around the incision. Numbness can extend beyond the incision to areas of the neck, ear and face. The numbness is due to bruising of nerves during the surgery and will gradually improve over a period of months. * Hoarseness/Difficulty Speaking and Swallowing - The bruising of nerves in the neck can also cause a hoarse voice, difficulty speaking or swallowing. This may improve over time, HOWEVER, if it continues for more than a few days please contact our office ([phone]). * Excessive Swelling - There will be some swelling immediately after surgery which usually resolves within one week. If you notice that the swelling is getting worse, notify your surgeon ([phone]). * Drainage/Bleeding - If there is any drainage or bleeding, it should be a very small amount (less than a teaspoon per day). If you have excessive bleeding or drainage from the incision, call your surgeon ([phone]) right away. ACTIVATION OF EMERGENCY MEDICAL SYSTEM: Call 911, immediately, if you experience any of the following: Warning Signs and Symptoms of Stroke: * Sudden numbness or weakness of the face, arm or leg, especially on one side of the body * Sudden confusion, trouble speaking or understanding * Sudden trouble seeing in one or both eyes * Sudden trouble walking, dizziness, loss of balance or coordination * Sudden severe headache with no cause Do not delay calling 911 if you experience any warning signs or symptoms of a stroke. Delay in seeking medical attention may affect what treatments can be given to you. Risk Factors for Stroke: You can reduce your chances of stroke by working with your medical provider to adopt a healthy lifestyle. Some specific ways to lower your chance of stroke are: * If you are a smoker, now is the time to stop smoking cigarettes * If you are diabetic, improve the control of your blood sugars * Avoid excessive amounts of alcohol * Control high blood pressure * Lose weight if you are overweight * Be sure to lead an active lifestyle * Eat a healthy diet low in salt, cholesterol and fat You should know about other risk factors for stroke that you are unable to control. These include: * Age 55 years or older * Male gender * Certain racial groups: , or / * Family History of Stroke, Mini stroke or Heart Attack * Sickle Cell Disease You will be receiving a call from the Vascular Surgery Nurse after you are discharged. FOLLOW UP VISIT: It is important for you to keep your follow up appointments with your medical provider. Keep any scheduled doctor appointments. Call [phone] to schedule a follow up appointment if one not already scheduled. Pending Studies at Discharge: No Stand-Alone Forms: My [facility], Smoking Cessation Medications and DC Order Prescriptions: New tramadol 50 mg tablet 50 mg PO Q12H PRN (Reason: pain) Qty: 7 0RF Continued rivaroxaban [Xarelto] 20 mg tablet 20 mg PO DAILY hydralazine 25 mg tablet 25 mg PO TID furosemide [Lasix] 20 mg tablet 20 mg PO QAM losartan 100 mg tablet 100 mg PO QAM buspirone 7.5 mg tablet 7.5 mg PO BID lansoprazole 30 mg capsule,delayed release(DR/EC) 30 mg PO QAM ondansetron 4 mg tablet,disintegrating 4 mg PO Q8H PRN (Reason: Nausea And Vomiting) nitrofurantoin macrocrystal 100 mg capsule 100 mg PO DAILY Rx Instructions: taken around 6 pm per pt, must administer with a meal/food atorvastatin 20 mg Tablet 20 mg PO QPM metoprolol tartrate 100 mg Tablet 100 mg PO BID diltiazem HCl 240 mg Capsule,Extended Release 24 Hr 240 mg PO QAM clopidogrel 75 mg Tablet 75 mg PO QAM Discharge Orders: Discharge Order (Routine); Ordered 09/18/21 Ordered By: Gonzalo Soares/Other Patient Handouts: Having Carotid Endarterectomy, Carotid Endar terectomyDc, Carotid Artery Disease Admission Data Admit Date/Time: 09/17/21 07:17 Attending Provider: Gonzalo Starks Admit Provider: Gonzalo Starks Primary Care Provider: Skinny Mccord Other Providers: Urbano Paredes ; Breezy Asencio ; Leandro Wells ; Rex Hendricks ; Fracisco Drake ; Jose Miguel Ross ; Tigre Mallory ; John Dorado ; Sandy Carroll Other Interventions: Discharge Summary Assessment (RN) Last Done: 09/18/21 10:52
== END 2021-09-18 12:14 | disposition home or self-care (01) | DRG 39 ==
LOC: ASU 05:14 → PACUINP 07:17 → 1E 11:40

== ENCOUNTER 2024-10-22 18:29 | Inpatient (IN) ==
--- NOTE | 2024-10-22 19:31 | Emergency Department Note ---
Impression & Plan Weakness, Anemia, Fecal occult blood test positive ED Provider Note Provider: Jeremy Walls MD CHIEF COMPLAINT: Weakness, variable blood pressure HISTORY OF PRESENT ILLNESS: Patient is a 79-year-old female history of A-fib on Pradaxa, breast cancer, and hypertension presenting here today with daughter reporting over the past 2 to 3 days been experiencing increased generalized weakness and fatigue particular with exertion. Denies actual chest pain. Denies shortness of breath. Has noted for at least a week some increased welling of her feet and ankles bilaterally which is different than normal. Talked with her primary care office but did not feel well and often up to taking increased dose of her Lasix. Denies abdominal pain but does report some nausea at times but not currently. No other sick contacts or other recent medication changes. States has been keeping an eye in her blood pressure and heart rate at home and normally heart rates in the 60s but has been going up to 100 at some points and her systolic blood pressure has been up to 200 and her diastolics been persistently low in the 40s. Did skip her blood pressure medicine earlier today. PAST MEDICAL HISTORY: As noted above MEDICATIONS: Reviewed no medications SOCIAL HISTORY: Smoker PHYSICAL EXAM: GENERAL: alert and oriented in no acute distress on stretcher but generally fatigued Head: normocephalic and atraumatic EYES: No injection, discharge or icterus. PERRL, EOMI. NECK: Trachea midline. Supple. ENT: Mucous membranes pink and moist. Pharynx without erythema or exudate. LUNGS: Airway patent. No retractions. Breath sounds clear HEART: Regular rate and rhythm. No chest wall tenderness with noted left upper chest well-healed subcutaneous pacemaker ABDOMEN: Soft and non-tender, without guarding or rebound. SKIN: Acyanotic, warm, dry, without rashes EXTREMITIES: Without deformity with 2+ bilateral lower extremity swelling without erythema or weeping wounds. NEUROLOGICAL: No focal deficits. No aphasia. No facial droop or slurred speech. Ambulatory. EK bpm. Normal sinus rhythm. No PVC or PAC. No acute ST segment elevation or depression with QTc 446. CONTINUOUS CARDIAC MONITORING: was ordered and showed a heart rate of 60s bpm in normal sinus rhythm Patient's laboratory studies and imaging reviewed. Differential includes Infection, dehydration, metabolic abnormality, hypo/hyperglycemia, electrolyte disturbance, anemia, hypoxia, cardiac sources, intracerebral event, toxicologic, neurologic, as well as other pathologies. IMPRESSION/MEDICAL DECISION MAKING: Patient with some lower extremity swelling and reports of generalized fatigue. Not hypoxic. Denies worsening shortness of breath. He is anticoagulated lower suspicion for DVT/PE. Not having chest pain. EKG without findings of STEMI. Troponin is sent for completeness as well as a BNP. Electrolytes are sent as well as a COVID test. Denies significant cold symptoms however. No trauma reported. Urinalysis ordered to look for signs of infection here. Patient without leukocytosis but a new anemia of 7.1. Has been some years since she has had blood work here. No significant lecture light abnormality signs or renal dysfunction. Troponin not elevated. Hemoccult positive stool. Is on Pradaxa. History of GI bleed in the past. Reports some heartburn symptoms at times. Given Protonix 80 mg IV here. Will bring in for further treatment and a type and screen is sent to the blood bank. No believe requires emergent transfusion at this point but discussed with her and daughter that she needs to stay for monitoring and further workup of this anemia. Hypertensive here. Does have 4-1/2 months of battery life but otherwise normally functioning [place] pacemaker reported. Hospitalist team was contacted. DIAGNOSIS: Weakness, anemia, hypertension DISPOSITION: Hospitalist will evaluate Patient was agreeable with this plan. Past Med/Surg History Problem List (Updated 10/22/24 @ 20:42 by Jeremy Walls M.D.) Fecal occult blood test positive (Acute) Anemia (Acute) Weakness (Acute) S/P carotid endarterectomy Carotid artery disease GERD (gastroesophageal reflux disease) (Chronic) controlled, stable per pt Hypertension (Chronic) Hypercholesteremia (Chronic) Recurrent UTI (Chronic) Hematuria with recurrent UTIs Medical History History of blood transfusion Limb alert care status CAD (coronary artery disease) Hx MRSA infection History of anesthesia reaction Hyperlipidemia Hypertension HX: breast cancer History of COVID-19 Hx of cardiac pacemaker History of atrial fibrillation History of cardioversion Nephrolithiasis Colon cancer Surgical History History of incision and drainage Hx of cataract extraction History of cardiac radiofrequency ablation History of cardiac cath H/O heart artery stent Hx of lumpectomy History of colon surgery H/O breast surgery Family History Grandmother Diabetes Hypertension Mother Hypertension Heart disease Grandfather Heart disease Father Heart disease Social History Smoking Status: Current every day smoker Cigarettes Per Day: 10/day; Second Hand Exposure: No; Do You Dip or Chew Tobacco: No; Hx Alcohol Use: No Hx Substance Use: No Preferred Language: Latvian Communication Ability: Effective Visual Impairment: No Limitations [employer] Feeder Required: No Beliefs That Will Affect Care: None marital status: / Current Living Situation: Alone current occupational status: retired Feels Safe at Home: Yes Assistive Devices: None Allergies Allergies Allergy/AdvReac Type Severity Reaction Status Date / Time sotalol [From Betapace] AdvReac Severe Increases Verified 09/27/21 10:17 BP, Swelling in Legs & Feet spironolactone AdvReac Severe Rash on Verified 09/27/21 10:17 lower legs irbesartan AdvReac Intermediate Itchy Rash Verified 09/27/21 10:17 Home Meds Home Medications Medication Instructions Recorded Confirmed rivaroxaban 20 mg tablet (Xarelto) 20 mg PO DAILY 12/10/17 09/27/21 buspirone 7.5 mg tablet 7.5 mg PO BID 08/10/21 09/27/21 furosemide 20 mg tablet (Lasix) 20 mg PO QAM 08/10/21 09/27/21 hydralazine 25 mg tablet 25 mg PO TID 08/10/21 09/27/21 lansoprazole 30 mg capsule,delayed 30 mg PO QAM 08/10/21 09/27/21 release losartan 100 mg tablet 100 mg PO QAM 08/10/21 09/27/21 ondansetron 4 mg disintegrating 4 mg PO Q8H PRN Nausea And Vomiting 08/10/21 09/27/21 tablet atorvastatin 20 mg tablet 20 mg PO QPM 09/07/21 09/27/21 clopidogrel 75 mg tablet 75 mg PO QAM 09/07/21 09/27/21 diltiazem HCl 240 mg capsule,24 240 mg PO QAM 09/07/21 09/27/21 hr,extended release metoprolol tartrate 100 mg tablet 100 mg PO BID 09/07/21 09/27/21 Previous Rx's Medication Instructions Recorded tramadol 50 mg tablet 50 mg PO Q12H PRN pain #7 tabs 09/18/21 nitrofurantoin macrocrystal 100 mg 100 mg PO DAILY #90 caps 11/19/23 capsule Results & Data (ED) Vital Signs Vital Signs - 24 hr 10/22/24 18:32 10/22/24 18:43 10/22/24 19:33 Temperature 36.7 C Temperature Source Temporal Artery Scan Pulse Rate 77 79 Pulse Rate [Apical] Pulse Rate from SpO2 Sensor Pulse Rhythm [Apical] Pulse Strength [Apical] Respiratory Rate 17 Respiratory Effort / Characteristics Respiratory Depth Respiratory Pattern Blood Pressure 159/67 H Blood Pressure [Right Arm] Blood Pressure Mean 97 Blood Pressure Mean [Right Arm] Blood Pressure Position [Right Arm] Pulse Oximetry 97 95 Oxygen Delivery Method Room Air Room Air Sepsis Recent Fever Within 48 Hours No Sepsis New/Unexplained Change in Mental Status N/A Sepsis Action Taken by Nursing No Action Required 10/22/24 19:33 10/22/24 19:33 10/22/24 21:03 Temperature Temperature Source Pulse Rate 69 Pulse Rate [Apical] 67 Pulse Rate from SpO2 Sensor 69 Pulse Rhythm [Apical] Regular Pulse Strength [Apical] Normal Respiratory Rate 22 30 H Respiratory Effort / Characteristics Non-Labored Spontaneous Respiratory Depth Normal Respiratory Pattern Regular Blood Pressure 174/86 H Blood Pressure [Right Arm] 172/69 H Blood Pressure Mean 115 Blood Pressure Mean [Right Arm] 103 Blood Pressure Position [Right Arm] Lying Pulse Oximetry 94 95 91 Oxygen Delivery Method Room Air Room Air Sepsis Recent Fever Within 48 Hours Sepsis New/Unexplained Change in Mental Status Sepsis Action Taken by Nursing 10/22/24 21:21 10/22/24 21:24 10/22/24 21:30 Temperature Temperature Source Pulse Rate 68 67 Pulse Rate [Apical] Pulse Rate from SpO2 Sensor 68 67 Pulse Rhythm [Apical] Pulse Strength [Apical] Respiratory Rate 25 H 19 Respiratory Effort / Characteristics Respiratory Depth Respiratory Pattern Blood Pressure 134/70 134/70 171/70 H Blood Pressure [Right Arm] Blood Pressure Mean 96 91 125 Blood Pressure Mean [Right Arm] Blood Pressure Position [Right Arm] Pulse Oximetry 94 93 Oxygen Delivery Method Sepsis Recent Fever Within 48 Hours Sepsis New/Unexplained Change in Mental Status Sepsis Action Taken by Nursing 10/22/24 22:30 10/22/24 22:41 10/22/24 22:48 Temperature Temperature Source Pulse Rate 66 65 66 Pulse Rate [Apical] Pulse Rate from SpO2 Sensor Pulse Rhythm [Apical] Pulse Strength [Apical] Respiratory Rate 28 H 28 H Respiratory Effort / Characteristics Respiratory Depth Respiratory Pattern Blood Pressure 153/64 H Blood Pressure [Right Arm] Blood Pressure Mean 108 Blood Pressure Mean [Right Arm] Blood Pressure Position [Right Arm] Pulse Oximetry 95 Oxygen Delivery Method Sepsis Recent Fever Within 48 Hours Sepsis New/Unexplained Change in Mental Status Sepsis Action Taken by Nursing Laboratory Data 10/22/24 19:20 10/22/24 19:20 Lab Results 10/22/24 10/22/24 10/22/24 Range/Units 19:20 19:38 20:04 WBC 5.84 (4.8-10.8) K/ul RBC 2.60 L (4.20-5.40) M/uL Hgb 7.1 L (12.0-16.0) g/dl Hct 23.6 L (37.0-47.0) % MCV 90.8 (80.0-100.0) fL MCH 27.3 (25.0-34.0) pg MCHC 30.1 L (32.0-36.0) g/dL RDW Std Deviation 58.2 H (36.4-46.3) fL RDW Coeff of Wil 17.4 H (11.5-14.5) % Plt Count 319 (130-400) K/uL MPV 10.2 (9.4-12.4) fL Immature Gran % (Auto) 0.2 % Neut % (Auto) 66.4 % Lymph % (Auto) 19.9 % [place] % (Auto) 11.5 % Eos % (Auto) 1.0 % Baso % (Auto) 1.0 % Neut # (Auto) 3.88 (1.40-6.50) K/uL Lymph # (Auto) 1.16 L (1.20-3.40) K/uL [place] # (Auto) 0.67 H (0.11-0.59) K/uL Eos # (Auto) 0.06 (0.00-0.50) K/uL Baso # (Auto) 0.06 (0.00-0.20) K/uL Immature Gran # (Auto) 0.01 (0.01-0.20) K/uL Target Cells 1+ PT 12.7 H (9.0-12.0) Seconds INR 1.2 H (0.9-1.1) Sodium 142 (136-145) mmol/L Potassium 3.7 (3.5-5.1) mmol/L Chloride 102 (98-107) mmol/L Carbon Dioxide 32 (21-32) mmol/L Anion Gap 8 (3-11) BUN 18 (6-23) mg/dl Creatinine 0.99 (0.6-1.2) mg/dl Est Cr Clr Drug Dosing 39.7 ml/min eGFR 57.28 BUN/Creatinine Ratio 18.2 (10-20) Glucose 91 (70-99(Fasting)) mg/dl Calcium 9.4 (8.6-10.3) mg/dl Magnesium 2.0 (1.7-2.4) mg/dl Iron 20 L (35-150) mcg/dl TIBC 493 H (250-450) mcg/dl Transferrin 352 (200-360) mg/dl Transferrin % Sat 4 L (15-50) % Total Bilirubin 0.5 (0.2-1.0) mg/dl AST 15 (13-39) U/L ALT 12 (7-52) U/L Alkaline Phosphatase 64 (34-104) U/L Troponin I High Sens 5.5 (0-14) pg/ml B-Natriuretic Peptide 499 H (0-100) pg/ml Total Protein 7.0 (6.0-8.3) gm/dl Albumin 4.1 (3.4-5.0) gm/dl Globulin 2.9 (2.5-4.0) gm/dl Albumin/Globulin Ratio 1.4 (0.9-2) Lipase 53 (11-82) U/L POC Stool Occult Blood (Negative) SARS-CoV-2, RNA, NAAT NEGATIVE (NEGATIVE) Blood Type AB Positive Antibody Screen NEGATIVE 10/22/24 Range/Units 20:33 WBC (4.8-10.8) K/ul RBC (4.20-5.40) M/uL Hgb (12.0-16.0) g/dl Hct (37.0-47.0) % MCV (80.0-100.0) fL MCH (25.0-34.0) pg MCHC (32.0-36.0) g/dL RDW Std Deviation (36.4-46.3) fL RDW Coeff of Wil (11.5-14.5) % Plt Count (130-400) K/uL MPV (9.4-12.4) fL Immature Gran % (Auto) % Neut % (Auto) % Lymph % (Auto) % [place] % (Auto) % Eos % (Auto) % Baso % (Auto) % Neut # (Auto) (1.40-6.50) K/uL Lymph # (Auto) (1.20-3.40) K/uL [place] # (Auto) (0.11-0.59) K/uL Eos # (Auto) (0.00-0.50) K/uL Baso # (Auto) (0.00-0.20) K/uL Immature Gran # (Auto) (0.01-0.20) K/uL Target Cells PT (9.0-12.0) Seconds INR (0.9-1.1) Sodium (136-145) mmol/L Potassium (3.5-5.1) mmol/L Chloride (98-107) mmol/L Carbon Dioxide (21-32) mmol/L Anion Gap (3-11) BUN (6-23) mg/dl Creatinine (0.6-1.2) mg/dl Est Cr Clr Drug Dosing ml/min eGFR BUN/Creatinine Ratio (10-20) Glucose (70-99(Fasting)) mg/dl Calcium (8.6-10.3) mg/dl Magnesium (1.7-2.4) mg/dl Iron (35-150) mcg/dl TIBC (250-450) mcg/dl Transferrin (200-360) mg/dl Transferrin % Sat (15-50) % Total Bilirubin (0.2-1.0) mg/dl AST (13-39) U/L ALT (7-52) U/L Alkaline Phosphatase (34-104) U/L Troponin I High Sens (0-14) pg/ml B-Natriuretic Peptide (0-100) pg/ml Total Protein (6.0-8.3) gm/dl Albumin (3.4-5.0) gm/dl Globulin (2.5-4.0) gm/dl Albumin/Globulin Ratio (0.9-2) Lipase (11-82) U/L POC Stool Occult Blood Positive A (Negative) SARS-CoV-2, RNA, NAAT (NEGATIVE) Blood Type Antibody Screen Administered Medications Potassium Chloride/Sodium Chloride (Normal Saline W/20 Meq Kcl) 20 meq in 1,000 mls @ 80 mls/hr IV .[id number] RICK Stop: 10/23/24 11:14 Last Admin: 10/22/24 23:05 Dose: 80 mls/hr Documented By: JUDY Discontinued Medications Pantoprazole Sodium 80 mg/ (Dextrose) 120 mls @ 480 mls/hr IV ONE STA Stop: 10/22/24 20:47 Last Infusion: 10/22/24 23:02 Dose: Infused Documented By: Admin: 10/22/24 21:30 Dose: 480 mls/hr Documented By: MIRA Imaging Data Radiologist's Impression: Chest X-Ray 10/22/24 19:17 Clinical History: Chest pain Technique: A frontal view of the chest was obtained Comparison is made to the prior examination dated 09/13/2021 Findings: There are no definite pulmonary infiltrates. The heart size is at the upper limit of normal. No pleural effusion or pneumothorax is seen. There is no definite pulmonary nodule. No fracture is noted. There is a left chest wall pacemaker device. Surgical clips project over the left lower lung Impression: No active disease Electronically signed by Amarjit Corona 10-22-2024 7:42 PM Discharge Plan Visit Data Chief Complaint: Cardiac Assessment Stated Complaint: BLOOD PRESSURE ELEVATES/DROPS ED Provider: Jeremy Walls Discharge Problem: Weakness, Anemia, Fecal occult blood test positive Patient Disposition: Being Evaluated by Hospitalist Condition: Fair Forms Stand Alone Forms: My [employer] Prescriptions Prescriptions: No Action rivaroxaban [Xarelto] 20 mg tablet 20 mg PO DAILY hydralazine 25 mg tablet 25 mg PO TID furosemide [Lasix] 20 mg tablet 20 mg PO QAM losartan 100 mg tablet 100 mg PO QAM buspirone 7.5 mg tablet 7.5 mg PO BID lansoprazole 30 mg capsule,delayed release(DR/EC) 30 mg PO QAM ondansetron 4 mg tablet,disintegrating 4 mg PO Q8H PRN (Reason: Nausea And Vomiting) nitrofurantoin macrocrystal 100 mg capsule 100 mg PO DAILY Qty: 90 3RF Rx Instructions: taken around 6 pm per pt, must administer with a meal/food atorvastatin 20 mg Tablet 20 mg PO QPM metoprolol tartrate 100 mg Tablet 100 mg PO BID diltiazem HCl 240 mg Capsule,Extended Release 24 Hr 240 mg PO QAM clopidogrel 75 mg Tablet 75 mg PO QAM tramadol 50 mg tablet 50 mg PO Q12H PRN (Reason: pain) Qty: 7 0RF Referrals Referrals: Skinny Mccord [Outside Practitioners] -
[2024-10-22 19:42] LABS: Hematocrit (blood only) 23.6 % (37.0-47.0); Hemoglobin 7.1 g/dl (12.0-16.0); Immature Granulocytes # (auto) 0.01 K/uL (0.01-0.20); Immature Granulocytes % (auto) 0.2 %; Mean Corpuscular Hemoglobin 27.3 pg (25.0-34.0); Mean Corpuscular Volume 90.8 fL (80.0-100.0); Platelet Count 319 K/uL (130-400); RDW Standard Deviation 58.2 fL (36.4-46.3); Red Blood Count 2.60 M/uL (4.20-5.40); White Blood Count 5.84 K/ul (4.8-10.8)
--- NOTE | 2024-10-22 19:43 | XRay Report ---
Clinical History: Chest pain Technique: A frontal view of the chest was obtained Comparison is made to the prior examination dated 09/13/2021 Findings: There are no definite pulmonary infiltrates. The heart size is at the upper limit of normal. No pleural effusion or pneumothorax is seen. There is no definite pulmonary nodule. No fracture is noted. There is a left chest wall pacemaker device. Surgical clips project over the left lower lung Impression: No active disease Electronically signed by Amarjit Corona 10-22-2024 7:42 PM
[2024-10-22 20:00] LABS: Alanine Aminotransferase 12.0 U/L (7-52); Albumin Globulin Ratio 1.4 (0.9-2); Alkaline Phosphatase 64.0 U/L (34-104); Anion Gap 8.0 (3-11); Bilirubin,Total 0.5 mg/dl (0.2-1.0); Blood Urea Nitrogen 18.0 mg/dl (6-23); Calcium 9.4 mg/dl (8.6-10.3); Carbon Dioxide 32.0 mmol/L (21-32); Chloride 102.0 mmol/L (98-107); Creatinine Clr Calc Pharmacy 39.7 ml/min; Globulin 2.9 gm/dl (2.5-4.0); Glucose 91.0 mg/dl (70-99(Fasting)); Lipase 53.0 U/L (11-82); Potassium 3.7 mmol/L (3.5-5.1); Sodium 142.0 mmol/L (136-145); Target Cells 1+; Total Protein 7.0 gm/dl (6.0-8.3)
[2024-10-22 20:11] LABS: INR 1.2 (0.9-1.1); Prothrombin Time 12.7 Seconds (9.0-12.0)
[2024-10-22 20:15] LABS: Iron 20.0 mcg/dl (35-150); Total Iron Binding Cap Calc 493.0 mcg/dl (250-450); Transferrin 352.0 mg/dl (200-360); Transferrin (FE) Percent Satur 4.0 % (15-50)
--- NOTE | 2024-10-22 22:33 | History & Physical Report ---
Date of Service October 22, 2024 Assessment & Plan (1) Upper GI bleed: (2) Anemia: (3) Hypertension: (4) Atrial fibrillation: Plan The patient is a 79-year-old female with a past medical history including atrial fibrillation on Pradaxa, presence of pacemaker, breast cancer, hypertension, hypercholesterolemia, history of recurrent UTI on nitrofurantoin prophylaxis, carotid artery disease status post left CEA, GERD, anxiety. She presents to the emergency department with complaint of 2 to 3 days of progressively worsening generalized weakness, fatigue, and dyspnea on exertion. She has noticed increased swelling of her feet over the past week, in spite of taking an increased dose of Lasix. She reports that she has had some darkening of her stools over the past several weeks, but it attributed this to eating chocolate. She reports that her symptoms are more tolerable if she is relatively stationary and does not move around a lot. She did have a history of GI bleeding on warfarin several years ago. She reports having an EGD done sometime last year, with no significant findings. In the emergency department, significant findings included a hemoglobin of 7.1 and hematocrit 23.6 [facility]. Upper GI bleed/symptomatic anemia- Noted to be Hemoccult positive in the ED Likely secondary to Pradaxa and Plavix She reports having had endoscopy done last year, but results not available at this time. Scope was done at [facility] NPO Hemoglobin 7.1 on admission H&H every 6 hours x 4 Received Protonix 80 mg IV in ED, will continue 40 mg IV twice daily NSS plus KCl 20 mEq at 80 mL/h x 1 L Zofran 4 mg IV every 6 hours as needed Acetaminophen 1 g IV every 8 hours as needed for mild pain or fever Patient's blood pressure peaked at 170/86, and has been gradually declining, presently is 141/62 Will transfuse 1 unit PRBCs now Ceftriaxone 2 g IV daily Consult gastroenterology Atrial fibrillation/hypertension- Holding metoprolol, hydralazine, losartan, furosemide Lopressor 5 mg IV every 4 hours hold for systolic blood pressure less than 120 She has had problems with bleeding on warfarin 10 years ago She had stopped Xarelto due to the cost and started Pradaxa. Patient reports that if she is back on anticoagulation after discharge, she would like to restart Xarelto Carotid artery disease status post left CEA- Temporarily hold Plavix Recurrent urinary tract infections- Hold nitrofurantoin for now, but resume prior at discharge for continued prophylaxis Hyperlipidemia- Hold atorvastatin now, and resume at discharge Anxiety- Hold buspirone History of Present Illness Chief Complaint: The patient presents to the emergency department accompanied by her daughter, with 2 to 3 days of progressively worsening generalized weakness, fatigue and dyspnea on exertion. She has had some increased swelling of her feet over the past week. She has also had some darkening of her stools for a few weeks, that she thought might be due to eating chocolate. She reports that if she is relatively immobile, the weakness and fatigue is tolerable. Primary Care Provider: Deidre Hutson DO The patient is a 79-year-old female with a past medical history including atrial fibrillation on Pradaxa, presence of pacemaker, breast cancer, hypertension, hypercholesterolemia, history of recurrent UTI on nitrofurantoin prophylaxis, carotid artery disease status post left CEA, GERD, anxiety. She presents to the emergency department with complaint of 2 to 3 days of progressively worsening generalized weakness, fatigue, and dyspnea on exertion. She has noticed increased swelling of her feet over the past week, in spite of taking an increased dose of Lasix. She reports that she has had some darkening of her stools over the past several weeks, but it attributed this to eating chocolate. She reports that her symptoms are more tolerable if she is relatively stationary and does not move around a lot. She did have a history of GI bleeding on warfarin several years ago. She reports having an EGD done sometime last year, with no significant findings. In the emergency department, significant findings included a hemoglobin of 7.1 and hematocrit 23.6 She was referred for evaluation [facility] Allergies Allergy/AdvReac Type Severity Reaction Status Date / Time sotalol [From Betapace] AdvReac Severe Increases Verified 09/27/21 10:17 BP, Swelling in Legs & Feet spironolactone AdvReac Severe Rash on Verified 09/27/21 10:17 lower legs irbesartan AdvReac Intermediate Itchy Rash Verified 09/27/21 10:17 Home Medications Medication Instructions Recorded Confirmed Type rivaroxaban 20 mg tablet (Xarelto) 20 mg PO DAILY 12/10/17 09/27/21 History buspirone 7.5 mg tablet 7.5 mg PO BID 08/10/21 09/27/21 History furosemide 20 mg tablet (Lasix) 20 mg PO QAM 08/10/21 09/27/21 History hydralazine 25 mg tablet 25 mg PO TID 08/10/21 09/27/21 History lansoprazole 30 mg capsule,delayed 30 mg PO QAM 08/10/21 09/27/21 History release losartan 100 mg tablet 100 mg PO QAM 08/10/21 09/27/21 History ondansetron 4 mg disintegrating 4 mg PO Q8H PRN Nausea And Vomiting 08/10/21 09/27/21 History tablet atorvastatin 20 mg tablet 20 mg PO QPM 09/07/21 09/27/21 History clopidogrel 75 mg tablet 75 mg PO QAM 09/07/21 09/27/21 History diltiazem HCl 240 mg capsule,24 240 mg PO QAM 09/07/21 09/27/21 History hr,extended release metoprolol tartrate 100 mg tablet 100 mg PO BID 09/07/21 09/27/21 History tramadol 50 mg tablet 50 mg PO Q12H PRN pain #7 tabs 09/18/21 09/27/21 Rx nitrofurantoin macrocrystal 100 mg 100 mg PO DAILY #90 caps 11/19/23 11/19/23 Rx capsule Past Med/Surg History Problem List (Updated 10/23/24 @ 00:17 by Vinnie Bull MD) Atrial fibrillation Upper GI bleed Fecal occult blood test positive (Acute) Anemia (Acute) Weakness (Acute) S/P carotid endarterectomy Carotid artery disease GERD (gastroesophageal reflux disease) (Chronic) controlled, stable per pt Hypertension (Chronic) Hypercholesteremia (Chronic) Recurrent UTI (Chronic) Hematuria with recurrent UTIs Medical History History of blood transfusion Limb alert care status CAD (coronary artery disease) Hx MRSA infection History of anesthesia reaction Hyperlipidemia Hypertension HX: breast cancer History of COVID-19 Hx of cardiac pacemaker History of atrial fibrillation History of cardioversion Nephrolithiasis Colon cancer Surgical History History of incision and drainage Hx of cataract extraction History of cardiac radiofrequency ablation History of cardiac cath H/O heart artery stent Hx of lumpectomy History of colon surgery H/O breast surgery Family History Grandmother Diabetes Hypertension Mother Hypertension Heart disease Grandfather Heart disease Father Heart disease Social History Smoking Status: Current every day smoker Cigarettes Per Day: 10/day; Second Hand Exposure: No; Do You Dip or Chew Tobacco: No; Hx Alcohol Use: No Hx Substance Use: No Preferred Language: Dutch Communication Ability: Effective Visual Impairment: No Limitations 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 Beliefs That Will Affect Care: None marital status: / Current Living Situation: Alone current occupational status: retired Feels Safe at Home: Yes Assistive Devices: None Review of Systems Review of Systems: The patient denies chest pain, palpitations, cough, sore throat, fevers, chills, sweats, nausea, vomiting, diarrhea , constipation, abdominal pain, pelvic pain, blood in urine or stool, dysuria, urinary frequency or urgency, lightheadedness, dizziness, headache, memory loss, loss of consciousness, rash, focal weakness, numbness or tingling in arms or legs, generalized arthralgias or myalgias, back or neck pain, or night sweats. The review of systems is otherwise negative other than for that already noted above, and at least 10 systems have been reviewed. Physical Exam Physical Exam: The patient is awake, alert and oriented 3, well developed and well nourished, normocephalic and atraumatic, lying in bed and in no acute distress. HEENT--PERRL, EOMI, mucous membranes and oropharynx dry. Neck--supple. No JVD. No bruits. Thyroid normal, trachea midline, no adenopathy. Heart--normal S1 and S2. No murmurs, rubs or gallops. Lungs--clear bilaterally, no respiratory distress, no accessory muscle use. Abdomen--normal bowel sounds and soft. Nontender. Nondistended, no hernias or masses, no organomegaly. Extremities--no cyanosis or clubbing. Trace bilateral pretibial pitting edema. Dermatologic--normal skin turgor, normal color, no abnormal lymph nodes, no rash. Neurologic--cranial nerves II through XII grossly intact. Rheumatologic--normal range of motion. Psychiatric--normal affect. Results & Data Results & Data Vital Signs (Past 12 Hours) Vital Signs Temp Pulse Pulse Resp BP BP Pulse Ox 10/22/24 21:30 67 19 171/70 H 93 10/22/24 21:24 68 25 H 134/70 94 10/22/24 21:21 134/70 10/22/24 21:03 69 30 H 174/86 H 91 10/22/24 19:33 95 10/22/24 19:33 67 22 172/69 H 94 10/22/24 19:33 95 10/22/24 18:43 79 10/22/24 18:32 36.7 C 77 17 159/67 H 97 O2 Del Method 10/22/24 21:30 10/22/24 21:24 10/22/24 21:21 10/22/24 21:03 10/22/24 19:33 Room Air 10/22/24 19:33 Room Air 10/22/24 19:33 Room Air 10/22/24 18:43 10/22/24 18:32 Room Air Laboratory Results Laboratory Results WBC 5.84 K/ul (4.8-10.8) 10/22/24 19:20 RBC 2.60 M/uL (4.20-5.40) L 10/22/24 19:20 Hgb 7.1 g/dl (12.0-16.0) L 10/22/24 19:20 Hct 23.6 % (37.0-47.0) L 10/22/24 19:20 MCV 90.8 fL (80.0-100.0) 10/22/24 19:20 MCH 27.3 pg (25.0-34.0) 10/22/24 19:20 MCHC 30.1 g/dL (32.0-36.0) L 10/22/24 19:20 RDW Std Deviation 58.2 fL (36.4-46.3) H 10/22/24 19:20 RDW Coeff of Wil 17.4 % (11.5-14.5) H 10/22/24 19:20 Plt Count 319 K/uL (130-400) 10/22/24 19:20 MPV 10.2 fL (9.4-12.4) 10/22/24 19:20 Immature Gran % (Auto) 0.2 % 10/22/24 19:20 Neut % (Auto) 66.4 % 10/22/24 19:20 Lymph % (Auto) 19.9 % 10/22/24 19:20 Greene % (Auto) 11.5 % 10/22/24 19:20 Eos % (Auto) 1.0 % 10/22/24 19:20 Baso % (Auto) 1.0 % 10/22/24 19:20 Neut # (Auto) 3.88 K/uL (1.40-6.50) 10/22/24 19:20 Lymph # (Auto) 1.16 K/uL (1.20-3.40) L 10/22/24 19:20 Greene # (Auto) 0.67 K/uL (0.11-0.59) H 10/22/24 19:20 Eos # (Auto) 0.06 K/uL (0.00-0.50) 10/22/24 19:20 Baso # (Auto) 0.06 K/uL (0.00-0.20) 10/22/24 19:20 Immature Gran # (Auto) 0.01 K/uL (0.01-0.20) 10/22/24 19:20 Target Cells 1+ 10/22/24 19:20 PT 12.7 Seconds (9.0-12.0) H 10/22/24 19:20 INR 1.2 (0.9-1.1) H 10/22/24 19:20 Sodium 142 mmol/L (136-145) 10/22/24 19:20 Potassium 3.7 mmol/L (3.5-5.1) 10/22/24 19:20 Chloride 102 mmol/L (98-107) 10/22/24 19:20 Carbon Dioxide 32 mmol/L (21-32) 10/22/24 19:20 Anion Gap 8 (3-11) 10/22/24 19:20 BUN 18 mg/dl (6-23) 10/22/24 19:20 Creatinine 0.99 mg/dl (0.6-1.2) 10/22/24 19:20 Est Cr Clr Drug Dosing 39.7 ml/min 10/22/24 19:20 eGFR 57.28 10/22/24 19:20 BUN/Creatinine Ratio 18.2 (10-20) 10/22/24 19:20 Glucose 91 mg/dl (70-99(Fasting)) 10/22/24 19:20 Calcium 9.4 mg/dl (8.6-10.3) 10/22/24 19:20 Magnesium 2.0 mg/dl (1.7-2.4) 10/22/24 19:20 Iron 20 mcg/dl (35-150) L 10/22/24 19:20 TIBC 493 mcg/dl (250-450) H 10/22/24 19:20 Transferrin 352 mg/dl (200-360) 10/22/24 19:20 Transferrin % Sat 4 % (15-50) L 10/22/24 19:20 Total Bilirubin 0.5 mg/dl (0.2-1.0) 10/22/24 19:20 AST 15 U/L (13-39) 10/22/24 19:20 ALT 12 U/L (7-52) 10/22/24 19:20 Alkaline Phosphatase 64 U/L (34-104) 10/22/24 19:20 Troponin I High Sens 5.5 pg/ml (0-14) 10/22/24 19:20 B-Natriuretic Peptide 499 pg/ml (0-100) H 10/22/24 20:04 Total Protein 7.0 gm/dl (6.0-8.3) 10/22/24 19:20 Albumin 4.1 gm/dl (3.4-5.0) 10/22/24 19:20 Globulin 2.9 gm/dl (2.5-4.0) 10/22/24 19:20 Albumin/Globulin Ratio 1.4 (0.9-2) 10/22/24 19:20 Lipase 53 U/L (11-82) 10/22/24 19:20 POC Stool Occult Blood Positive (Negative) A 10/22/24 20:33 SARS-CoV-2, RNA, NAAT NEGATIVE (NEGATIVE) 10/22/24 19:38 Blood Type AB Positive 10/22/24 20:04 Antibody Screen NEGATIVE 10/22/24 20:04 Impressions Chest X-Ray 10/22/24 19:17 Clinical History: Chest pain Technique: A frontal view of the chest was obtained Comparison is made to the prior examination dated 09/13/2021 Findings: There are no definite pulmonary infiltrates. The heart size is at the upper limit of normal. No pleural effusion or pneumothorax is seen. There is no definite pulmonary nodule. No fracture is noted. There is a left chest wall pacemaker device. Surgical clips project over the left lower lung Impression: No active disease Electronically signed by Amarjit Corona 10-22-2024 7:42 PM Code Status & VTE Plan Code Status Full code PG Care Time/CCT Total # of Minutes Spent Total Time Spent with Patient: Total time spent is greater than 50% in coordination of care (as documented) at patient's floor/unit and/or counseling patient: Coding Level of Care Code 56774 INT INP/OBS CARE 3/75MIN Diagnoses Upper GI bleed K92.2 Anemia D64.9 Hypertension I10 Atrial fibrillation I48.91
[2024-10-22 23:02] LABS: Magnesium 2.0 mg/dl (1.7-2.4)
[2024-10-22] MEDS: NSS + 20MEQ KCL 20 MEQ/1,000 ML BAG IV SCH (23:05)
[2024-10-23] MEDS: METOPROLOL TARTRATE 1 MG/ML VIAL IV SCH (00:22)
[2024-10-23] MEDS ORDERED: SODIUM CHLORIDE 0.9% 100 ML IV PRN ×4 (00:23→09:08)
[2024-10-23] MEDS ORDERED: ONDANSETRON INJ 2 MG/ML 2 ML VIAL IV PRN (02:05)
[2024-10-23 03:19] LABS: Hematocrit (blood only) 20.1 % (37.0-47.0); Hemoglobin 6.3 g/dl (12.0-16.0); Mean Corpuscular Hemoglobin 28.8 pg (25.0-34.0); Mean Corpuscular Volume 91.8 fL (80.0-100.0); Platelet Count 279 K/uL (130-400); RDW Standard Deviation 58.3 fL (36.4-46.3); Red Blood Count 2.19 M/uL (4.20-5.40); White Blood Count 6.17 K/ul (4.8-10.8)
[2024-10-23 03:20] LABS: Alanine Aminotransferase 10.0 U/L (7-52); Albumin Globulin Ratio 1.4 (0.9-2); Alkaline Phosphatase 54.0 U/L (34-104); Anion Gap 7.0 (3-11); Bilirubin,Total 0.5 mg/dl (0.2-1.0); Blood Urea Nitrogen 16.0 mg/dl (6-23); Calcium 8.6 mg/dl (8.6-10.3); Carbon Dioxide 30.0 mmol/L (21-32); Chloride 104.0 mmol/L (98-107); Creatinine Clr Calc Pharmacy 46.2 ml/min; Globulin 2.4 gm/dl (2.5-4.0); Glucose 93.0 mg/dl (70-99(Fasting)); Magnesium 2.0 mg/dl (1.7-2.4); Potassium 3.6 mmol/L (3.5-5.1); Sodium 141.0 mmol/L (136-145); Total Protein 5.8 gm/dl (6.0-8.3)
[2024-10-23 03:22] LABS: Hypochromasia Present; Immature Granulocytes # (auto) 0.01 K/uL (0.01-0.20); Immature Granulocytes % (auto) 0.2 %
[2024-10-23 03:33] LABS: INR 1.2 (0.9-1.1); Partial Thromboplastin Time 36 Seconds (21-31); Prothrombin Time 12.4 Seconds (9.0-12.0)
[2024-10-23] MEDS: cefTRIAXone SODIUM 2,000 MG/50 ML BAG IV SCH (07:46)
[2024-10-23] MEDS: PANTOprazole 40 MG/10 ML SYR IV SCH (07:47)
[2024-10-23 07:54] LABS: Hematocrit (blood only) 22.8 % (37.0-47.0); Hemoglobin 6.9 g/dl (12.0-16.0)
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
[2024-10-23 10:06] LABS: Ferritin 6.9 ng/ml (8-388)
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
[2024-10-23 14:02] LABS: Appearance Urine Clear (Clear); Bacteria Urine Automated 1+ (None Seen); Cast Urine Automated 0-2 /lpf (0-2); Glucose Urine UA Negative (Negative); RBC Urine Automated 0-2 /hpf (0-2); WBC Urine Automated 0-5 /hpf (0-5)
[2024-10-23] MEDS: METOPROLOL TARTRATE 100 MG TAB PO SCH (21:59)
[2024-10-24] MEDS: ACETAMINOPHEN 1000 MG/100 ML IV IV PRN (03:49)
[2024-10-24 07:10] LABS: Hematocrit (blood only) 25.7 % (37.0-47.0); Hemoglobin 8.1 g/dl (12.0-16.0); Immature Granulocytes # (auto) 0.03 K/uL (0.01-0.20); Immature Granulocytes % (auto) 0.3 %; Mean Corpuscular Hemoglobin 27.9 pg (25.0-34.0); Mean Corpuscular Volume 88.6 fL (80.0-100.0); Platelet Count 233 K/uL (130-400); RDW Standard Deviation 59.0 fL (36.4-46.3); Red Blood Count 2.90 M/uL (4.20-5.40); White Blood Count 8.63 K/ul (4.8-10.8)
[2024-10-24 07:47] LABS: INR 1.0 (0.9-1.1); Partial Thromboplastin Time 29 Seconds (21-31); Prothrombin Time 11.1 Seconds (9.0-12.0)
[2024-10-24 07:48] LABS: Alanine Aminotransferase 9.0 U/L (7-52); Albumin Globulin Ratio 1.4 (0.9-2); Alkaline Phosphatase 55.0 U/L (34-104); Anion Gap 4.0 (3-11); Bilirubin,Total 0.7 mg/dl (0.2-1.0); Blood Urea Nitrogen 11.0 mg/dl (6-23); Calcium 8.3 mg/dl (8.6-10.3); Carbon Dioxide 31.0 mmol/L (21-32); Chloride 105.0 mmol/L (98-107); Creatinine Clr Calc Pharmacy 55.2 ml/min; Globulin 2.3 gm/dl (2.5-4.0); Glucose 100.0 mg/dl (70-99(Fasting)); Magnesium 2.0 mg/dl (1.7-2.4); Potassium 3.9 mmol/L (3.5-5.1); Sodium 140.0 mmol/L (136-145); Total Protein 5.6 gm/dl (6.0-8.3)
--- NOTE | 2024-10-24 10:01 | Gastroenterology Progress Note ---
Date of Service October 24, 2024 Assessment & Plan (1) Upper GI bleed: Plan: Seems stable. Will order prep for EGD and colonoscopy tomorrow Admission and Anticipated Discharge Date Admission Date: October 22, 2024 Subjective Feeling well. Had brown bowel movement this morning. Hemoglobin stable Physical Exam Physical Exam: she looks well Constitutional: WD/WN, vitals as above Results & Data Vital Signs (Past 12 Hours) Vital Signs Temp Pulse Pulse Resp BP BP Pulse Ox 10/24/24 08:02 36.8 C 64 100/63 10/24/24 05:55 116/77 10/24/24 02:41 36.9 C 88 18 180/95 H 96 10/23/24 23:15 63 10/23/24 22:34 36.9 C 75 18 110/85 95 O2 Del Method O2 Flow Rate 10/24/24 08:02 Room Air 10/24/24 05:55 10/24/24 02:41 Nasal Cannula 2 10/23/24 23:15 10/23/24 22:34 Room Air
[2024-10-24] MEDS: FUROSEMIDE 40 MG/4 ML VIAL IV ONE ×2 (12:52→20:14)
--- NOTE | 2024-10-24 12:53 | XRay Report ---
XR chest 1V portable CLINICAL HISTORY: acute SOB at rest with bibasilar crackles COMPARISON STUDY: 10/22/2024 FINDINGS: Stable pacemaker. Stable mild cardiomegaly without pulmonary vascular congestion. There is interval patchy opacity at the right lung base. No other consolidation or pleural effusion. No pneumo thorax. IMPRESSION: Pneumonia right lung base. ACT 112: Negative or not required by law. Electronically signed by: Matias Oshea M.D. 10/24/2024 12:51 PM
[2024-10-24] MEDS: ACETAMINOPHEN 1,000 MG/100 ML VIAL IV STA (15:05)
[2024-10-24] MEDS: POLYETHYLENE (MIRALAX) 17 GM PACK PO SCH (17:45)
--- NOTE | 2024-10-24 19:41 | Hospitalist Progress Note ---
Date of Service October 24, 2024 Assessment & Plan (1) Upper GI bleed: Plan: Etiology of acute blood loss anemia remains unclear as patient reports no mucosal bleeding at all while taking her home-scheduled plavix 75mg PO daily for the past several years and her home-scheduled Pradaxa for the past 1 year. Patient reports that she last underwent EGD in 2023 @ [facility] @ [place] with GI Dr. Nahun Shultz, and that it revealed only gastritis. Patient reports that she has never undergone screening colonoscopy in her entire life and was informed by her PCP that since she is 79 years old, she does not need to undergo screening colonoscopy. Patient subsequently underwent formal GI Service evaluation with Dr. Naila Ho on 10/23/2024, and who subsequently informed the patient that he will perform EGD and colonoscopy on Friday (10/25/2024) to evaluate patient's acute blood loss anemia in the setting of iron deficiency. In the interim, patient continues to be held off her home-scheduled plavix 75mg PO daily and home-sc heduled pradaxa 20mg PO daily given potential for either/both medications to exacerbate acute blood loss anemia, especially as patient received 2 units of packed RBC transfusion on 10/23/2024, 3:02am-5:20am; 10:24am-1:12pm, to treat Hb level less than 7 g/dL: cf., Hb 10.7 g/dL (09/18/2021, 5:21am). cf., Hb 7.1 g/dL, MCV 90.8, MCHC 30.1, platelet 319 (10/22/2024, 7:20pm). cf., Hb 6.3 g/dL (10/23/2024, 2:25am). cf., Hb 6.9 g/dL, MCV 91.8, MCHC 31.3, platelet 279 (10/23/2024, 7:32am). cf., Hb 8.2 g/dL (10/23/2024, 6:13pm). cf., Hb 8.2 g/dL (10/24/2024, 1:26am). cf., Hb 8.1 g/dL (10/24/2024, 6:47am). cf., Hb 8.5 g/dL, MCV 88.6, MCHC 31.5, platelet 233 (10/24/2024, 11:58am). cf., low Fe 20 ug/dL, high TIBC 493 ug/dL (10/22/2024, 7:20pm). cf., low ferritin 6.9 ng/mL (10/23/2024, 2:25am). Patient subsequently developed transient SOB/ESTEVEZ, due to presumed fluid overload from having received 2 units of packed RBC transfusion on 10/23/2024, 3:02am- 5:20am; 10:24am-1:12pm, even though portable CXR (10/24/2024, 12:30pm) reveals no evidence of pulmonary vascular congestion. Patient subsequently received lasix 40mg IV x 1 dose (10/24/2024, 12:52pm) and expressed 800 mL of clear yellow urine within 2 hours of having received lasix 40mg IV x 1 dose (10/24/2024, 12:52pm), and still reporting shortness of breath with dyspnea on exertion. Hence, patient continues to receive lasix 40mg IV bid x 2 more doses (10/24/2024, 7:39pm; 10/25/2024, 1:40am). (2) Anemia: Plan: See bullet #1 above. (3) Hypertension: Plan: Well-controlled with BP 132/87 (10/23/2024, 12:56pm) and current BP 131/68 (10/24/2024, 4:47pm) on home-scheduled metoprolol 100mg PO bid, and OFF home- scheduled furosemide 20mg PO qam, hydralazine 25mg PO tid, losartan 100mg PO qam, and diltiazem ER 240mg PO qam, given the potential for any/all of these medications to cause acute hypotension in this patient admitted with acute blood loss anemia of unclear etiology. (4) Atrial fibrillation: Plan: Paroxysmal, not chronic/persistent AFIB. s/p PPM. s/p atrial ablations x 2. s/p CALLY-directed cardioversion x 1 ([facility] @ [place] CARDS Dr. Andrew Servin and [facility] @ [place] Special Service Officer Dr. Herbert Velasquez). Well-controlled with HB 60 bpm (10/23/2024, 12:56pm) and current HR 90 bpm (10/24/2024, 4:47pm) on home-scheduled metoprolol 100mg PO bid. Hold off home- scheduled diltiazem ER 240mg PO qam given the potential for this medication to cause acute hypotension in this patient admitted with acute blood loss anemia of unclear etiology. Plan The patient is a 79-year-old female with a past medical history including atrial fibrillation on Pradaxa, presence of pacemaker, breast cancer, hypertension, hypercholesterolemia, history of recurrent UTI on nitrofurantoin prophylaxis, carotid artery disease status post left CEA, GERD, anxiety. She presents to the emergency department with complaint of 2 to 3 days of progressively worsening generalized weakness, fatigue, and dyspnea on exertion. She has noticed increased swelling of her feet over the past week, in spite of taking an increased dose of Lasix. She reports that she has had some darkening of her stools over the past several weeks, but it attributed this to eating chocolate. She reports that her symptoms are more tolerable if she is relatively stationary and does not move around a lot. She did have a history of GI bleeding on warfarin several years ago. She reports having an EGD done sometime last year, with no significant findings. In the emergency department, significant findings included a hemoglobin of 7.1 and hematocrit 23.6 She was referred for evaluation for further evaluation and treatment to [facility]ist service. Upper GI bleed/symptomatic anemia- Noted to be Hemoccult positive in the ED Likely secondary to Pradaxa and Plavix She reports having had endoscopy done last year, but results not available at this time. Scope was done at [facility] NPO Hemoglobin 7.1 on admission H&H every 6 hours x 4 Received Protonix 80 mg IV in ED, will continue 40 mg IV twice daily NSS plus KCl 20 mEq at 80 mL/h x 1 L Zofran 4 mg IV every 6 hours as needed Acetaminophen 1 g IV every 8 hours as needed for mild pain or fever Patient's blood pressure peaked at 170/86, and has been gradually declining, presently is 141/62 Will transfuse 1 unit PRBCs now Ceftriaxone 2 g IV daily Consult gastroenterology Atrial fibrillation/hypertension- Holding metoprolol, hydralazine, losartan, furosemide Lopressor 5 mg IV every 4 hours hold for systolic blood pressure less than 120 She has had problems with bleeding on warfarin 10 years ago She had stopped Xarelto due to the cost and started Pradaxa. Patient reports that if she is back on anticoagulation after discharge, she would like to restart Xarelto Carotid artery disease status post left CEA- Temporarily hold Plavix Recurrent urinary tract infections- Hold nitrofurantoin for now, but resume prior at discharge for continued prophylaxis Hyperlipidemia- Hold atorvastatin now, and resume at discharge Anxiety- Hold buspirone Admission and Anticipated Discharge Date Admission Date: October 22, 2024 Subjective "I got so anxious earlier this morning; I think it was because I didn't get my home-scheduled buspar 7.5mg PO bid until 3:44am this morning (10/24/2024). My anxiety went down, but now, I feel short of breath today. I think it was the 2 pints of blood I got yesterday (10/23/2024, 3:02am-5:20am; 10:24am-1:12pm)." I Review of Systems Constitutional: Positive for acute shortness of breath at rest with dyspnea on exertion on 10/24/2024, after having received 2 units of packed RBC transfusion on 10/23/2024, 3:02am-5:20am; 10:24am-1:12pm, consistent with fluid overload; subsequently, patient received lasix 40mg IV x 1 dose (10/24/2024, 12:52pm) and expressed 800 mL of clear yellow urine within 2 hours of having received lasix 40mg IV x 1 dose (10/24/2024, 12:52pm), and still reporting shortness of breath with dyspnea on exertion. Hence, patient continues to receive lasix 40mg IV bid x 2 more doses (10/24/2024, 7:39pm; 10/25/2024, 1:40am). Negative for antecedent/coincident fevers, chills, diaphoresis, cough, wheeze, sore throat, hemoptysis, chest pains, palpitations, pleurisy, nausea, vomiting, diarrhea, abdominal pain, pelvic pain, hematemesis, hematochezia, melena, hematuria, dysuria, frequency, urgency, flank pain, headaches, dizziness, lightheadedness, visual changes, hearing changes, weakness, falls, syncope, trauma, travel history, sick contacts, or food/drug ingestions novel or new. All other review of systems are reported as negative by the patient on 10/24/2024. Physical Exam Constitutional: General: Uncomfortable with dyspnea at rest, appearing anxious, but still very cooperative, coherent. Wide awake and alert. Not confused, lethargic, or obtunded. Patient speaks in complete, fluent, and articulate sentences without pause, interruption, cough, or wheeze. HEENT: Normocephalic, atraumatic. Extra-ocular muscles intact. Pupils equally round and reactive to light. No nystagmus, gaze paresis, anisocoria, miosis, mydriasis, hyphema, chemosis, scleral injection, conjunctivitis, or pterygium. No otorrhea or rhinorrhea. No pharyngeal discharge or exudate. Neck: Supple, no stridor or bruit. Jugular venous pressure is estimated to be 3 cm above the sternal angle of Mt, which is, by definition, 5 cm above the level of the right atrium. Hence, jugular venous pressure of 8 cm is not elevated on 10/24/2024. Lymphatics: No anterior/posterior cervical, infraclavicular, supraclavicular, axillary, epitrochlear, or inguinal adenopathy. Chest: Symmetric rise and fall with respirations. Non-tender to palpation. Lungs: Bibasilar crackles. No audible expiratory wheeze, egophony, pectoriloquy, increase in tactile fremitus, or flatness/dullness to percussion at the bases. Heart: Regular rate and rhythm. S1 and S2 noted. No S3 or S4 summation gallop. No tripartite friction rub. Grade II/ early systolic murmur at left lower sternal border without radiation to the carotids, axilla, or back, and which remains invariant in regards to the respiratory cycle. Abdomen: Soft, non-tender, non-distended. No rebound, guarding, Argueta's sign, or organomegaly. Bowel sounds auscultated in all 4 quadrants. Extremities: No clubbing, cyanosis, or edema. 2+ pedal pulses bilaterally. Skin: No decubitus ulcer, exanthem, or enanthem. Urology: No bueno catheter. No purewick. No urethral discharge. Neurology: Alert and oriented in regards to person, place, time, and situation. 5/5 motor strength in all 4 extremities, proximally and distally. DTR+. No myoclonus, tremors, or tics. Psychiatry: No flat affect. No monotone voice. Smiles appropriately. Results & Data Results & Data Vital Signs (Past 12 Hours) Vital Signs Temp Pulse Pulse BP Pulse Ox O2 Del Method O2 Flow Rate 10/24/24 16:47 90 10/24/24 15:40 37.5 C 62 131/68 97 Nasal Cannula 1 10/24/24 13:35 37.5 C 62 131/68 97 Nasal Cannula 1 10/24/24 12:00 36.8 C 60 163/64 H 93 Room Air 10/24/24 10:50 80 10/24/24 08:02 36.8 C 64 100/63 Room Air Laboratory Results cf., Hb 10.7 g/dL (09/18/2021, 5:21am). cf., Hb 7.1 g/dL, MCV 90.8, MCHC 30.1, platelet 319 (10/22/2024, 7:20pm). cf., Hb 6.3 g/dL (10/23/2024, 2:25am). cf., Hb 6.9 g/dL, MCV 91.8, MCHC 31.3, platelet 279 (10/23/2024, 7:32am). cf., Hb 8.2 g/dL (10/23/2024, 6:13pm). cf., Hb 8.2 g/dL (10/24/2024, 1:26am). cf., Hb 8.1 g/dL (10/24/2024, 6:47am). cf., Hb 8.5 g/dL, MCV 88.6, MCHC 31.5, platelet 233 (10/24/2024, 11:58am). cf., low Fe 20 ug/dL, high TIBC 493 ug/dL (10/22/2024, 7:20pm). cf., low ferritin 6.9 ng/mL (10/23/2024, 2:25am). cf., INR 1.2 (10/22/2024, 7:20pm). cf., INR 1.2 (10/23/2024, 2:25am). cf., INR 1.0 (10/24/2024, 6:47am). Diagnostic Findings Portable CXR (10/22/2024, 7:17pm): No infiltrate, effusion, cardiomegaly, pulmonary vascular congestion, or pneumothorax. PPM in left chest wall (by my review). Portable CXR (10/24/2024, 12:30pm): No infiltrate, effusion, cardiomegaly, pulmonary vascular congestion, or pneumothorax. PPM in left chest wall (by my review). EKG (10/22/2024, 7:11pm): NSR @ 63, NE 192, QTC 446, LVH, no acute ST depressions/elevations, TWI, on q waves (by my review). EGD (10/25/2024 am, JAVI Ho): Colonoscopy (10/25/2024 am, JAVI Ho): ___ PG Care Time/CCT Total # of Minutes Spent Total Time Spent with Patient: Total time spent is greater than 50% in coordination of care (as documented) at patient's floor/unit and/or counseling patient: Coding Level of Care Code 51217 SUB INP/OBS CARE 2/35MIN Diagnoses Upper GI bleed K92.2 Anemia D64.9 Hypertension I10 Atrial fibrillation I48.91
[2024-10-25] MEDS: FUROSEMIDE 40 MG/4 ML VIAL IV ONE (02:52)
[2024-10-25 07:04] LABS: Hematocrit (blood only) 28.0 % (37.0-47.0); Hemoglobin 8.8 g/dl (12.0-16.0); Immature Granulocytes # (auto) 0.02 K/uL (0.01-0.20); Immature Granulocytes % (auto) 0.3 %; Mean Corpuscular Hemoglobin 27.9 pg (25.0-34.0); Mean Corpuscular Volume 88.9 fL (80.0-100.0); Platelet Count 233 K/uL (130-400); RDW Standard Deviation 57.6 fL (36.4-46.3); Red Blood Count 3.15 M/uL (4.20-5.40); White Blood Count 7.29 K/ul (4.8-10.8)
[2024-10-25 07:24] LABS: Alanine Aminotransferase 8.0 U/L (7-52); Albumin Globulin Ratio 1.7 (0.9-2); Alkaline Phosphatase 58.0 U/L (34-104); Anion Gap 6.0 (3-11); Bilirubin,Total 0.9 mg/dl (0.2-1.0); Blood Urea Nitrogen 10.0 mg/dl (6-23); Calcium 8.7 mg/dl (8.6-10.3); Carbon Dioxide 35.0 mmol/L (21-32); Chloride 100.0 mmol/L (98-107); Creatinine Clr Calc Pharmacy 48.6 ml/min; Globulin 2.3 gm/dl (2.5-4.0); Glucose 78.0 mg/dl (70-99(Fasting)); Magnesium 1.7 mg/dl (1.7-2.4); Potassium 3.3 mmol/L (3.5-5.1); Sodium 141.0 mmol/L (136-145); Total Protein 6.1 gm/dl (6.0-8.3)
[2024-10-25 07:33] LABS: INR 1.0 (0.9-1.1); Partial Thromboplastin Time 34 Seconds (21-31); Prothrombin Time 11.3 Seconds (9.0-12.0)
--- NOTE | 2024-10-25 08:54 | Hospitalist Progress Note ---
Date of Service October 25, 2024 Assessment & Plan (1) Upper GI bleed: Plan: -transfused PRBC, repeat heme 8.8 -awaiting EGD/Colonoscopy today (2) Anemia: Plan: See bullet #1 above. (3) Hypertension: Plan: Well-controlled with BP 132/87 (10/23/2024, 12:56pm) and current BP 131/68 (10/24/2024, 4:47pm) on home-scheduled metoprolol 100mg PO bid, and OFF home- scheduled furosemide 20mg PO qam, hydralazine 25mg PO tid, losartan 100mg PO qam, and diltiazem ER 240mg PO qam, given the potential for any/all of these medications to cause acute hypotension in this patient admitted with acute blood loss anemia of unclear etiology. (4) Atrial fibrillation: Plan: Paroxysmal, not chronic/persistent AFIB. s/p PPM. s/p atrial ablations x 2. s/p CALLY-directed cardioversion x 1 ([facility] @ [place] CARDS Dr. Andrew Servin and [facility] Exchange Consultant Dr. Herbert Velasquez). Well-controlled with HB 60 bpm (10/23/2024, 12:56pm) and current HR 90 bpm (10/24/2024, 4:47pm) on home-scheduled metoprolol 100mg PO bid. Hold off home- scheduled diltiazem ER 240mg PO qam given the potential for this medication to cause acute hypotension in this patient admitted with acute blood loss anemia of unclear etiology. Plan The patient is a 79-year-old female with a past medical history including atrial fibrillation on Pradaxa, presence of pacemaker, breast cancer, hypertension, hypercholesterolemia, history of recurrent UTI on nitrofurantoin prophylaxis, carotid artery disease status post left CEA, GERD, anxiety. She presents to the emergency department with complaint of 2 to 3 days of progressively worsening generalized weakness, fatigue, and dyspnea on exertion. She has noticed increased swelling of her feet over the past week, in spite of taking an increased dose of Lasix. She reports that she has had some darkening of her stools over the past several weeks, but it attributed this to eating chocolate. She reports that her symptoms are more tolerable if she is relatively stationary and does not move around a lot. She did have a history of GI bleeding on warfarin several years ago. She reports having an EGD done sometime last year, with no significant findings. In the emergency department, significant findings included a hemoglobin of 7.1 and hematocrit 23.6 She was [facility] for evaluation [facility] Admission and Anticipated Discharge Date Admission Date: October 22, 2024 Subjective No events overnight. Pt resting in bed awaiting EGD/Colonoscopy Review of Systems Review of Systems: CONST: Negative for fever, body aches and chills. HENT: Negative for neck pain/stiffness, headache, congestion, sore throat, swelling. EYES: Negative for discharge/pain or vision changes. RESP: Negative for cough/hemoptysis and shortness of breath. CV: Negative chest pain, difficulty breathing, palpitations. ABD: Negative pain, nausea, vomiting. : Negative increase frequency, dysuria, blood in urine or stool. MUSC: Negative for muscle aches, edema. SKIN: Negative rash, lesions/sores. NEURO: Negative headache, dizziness, weakness. Physical Exam Physical Exam: GENERAL APPEARANCE NAD, activity normal for age, well developed/ well nourished, no cyanosis, pallor, or diaphoresis. EYES lids/conjunctiva normal. EARS/NOSE/THROAT Mucous membranes moist, nares normal, lips/teeth normal uvula midline without oral pharyngeal erythema, exudate or swelling TMs normal bilaterally. No lymphangitis/lymphedema. HEAD/NECK normocephalic atraumatic, no facial trauma, neck is supple. RESPIRATORY respiratory effort normal, speaks in full sentences, no tripod position, no accessory muscle use. Lungs clear to auscultation without rhonchi, wheezes, rales CARDIAC Regular rate and rhythm, no edema. ABDOMINAL Soft, ND/NT. No evidence of fluid wave. No pulsatile masses on exam, rebound tenderness, Argueta sign or pain over Mcburney's point. MUSCLES/EXTREMITIES No abnormal range of motion, no swelling. SKIN Warm, pink and dry. No rashes, dermatoses, petechiae or lesions. NEUROLOGICAL Speech is clear and appropriate. Normal level of consciousness. Gait and coordination are normal. 5/5 strength in all extremities. PSYCH Normal mood and affect. Judgement/competence is appropriate Results & Data Results & Data Vital Signs (Past 12 Hours) Vital Signs Temp Pulse Pulse Resp BP Pulse Ox O2 Del Method 10/25/24 07:22 36.7 C 65 18 171/74 H 88 L Nasal Cannula 10/25/24 06:26 60 10/25/24 02:58 37.3 C 60 16 118/60 93 Room Air 10/24/24 22:36 36.5 C 58 L 18 160/68 H 93 Room Air 10/24/24 22:22 Nasal Cannula O2 Flow Rate 10/25/24 07:22 10/25/24 06:26 10/25/24 02:58 10/24/24 22:36 10/24/24 22:22 2 PG Care Time/CCT Total # of Minutes Spent Total Time Spent with Patient: Total time spent is greater than 50% in coordination of care (as documented) at patient's floor/unit and/or counseling patient: Coding Level of Care Code 61171 SUB INP/OBS CARE 2/35MIN Diagnoses Upper GI bleed K92.2 Anemia D64.9 Hypertension I10 Atrial fibrillation I48.91
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
[2024-10-25] MEDS: SODIUM CHLORIDE 0.9% 500 ML IV SCH (10:39)
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
--- NOTE | 2024-10-25 11:23 | GI REPORT ---
[facility] Patient: ANDREWS FIGUEROA : 1945 Sex at : Female Age: 79 Years Procedure: Upper GI endoscopy Date: 10/25/2024 Attending Physician: Naila Ho MD Referring MD: Trung Gibbons MD Indications: - Iron deficiency anemia Medications: - Monitored Anesthesia Care - Propofol per Anesthesia - See the Anesthesia note for documentation of the administered medications Complications: - No immediate complications. Estimated Blood Loss: - Estimated blood loss: None. Procedure: - Prior to the procedure, a History and Physical was performed, and patient medications and allergies were reviewed. The patient's tolerance of previous anesthesia was also reviewed. The risks and benefits of the procedure and the sedation options and risks were discussed with the patient. All questions were answered, and informed consent was obtained. Prior Anticoagulants: The patient has taken Plavix (clopidogrel), last dose was 2 days prior to procedure. ASA Grade Assessment: III - A patient with severe systemic disease. After reviewing the risks and benefits, the patient was deemed in satisfactory condition to undergo the procedure. - Prior to the procedure, a History and Physical was performed, and patient medications and allergies were reviewed. The patient's tolerance of previous anesthesia was also reviewed. The risks and benefits of the procedure and the sedation options and risks were discussed with the patient. All questions were answered, and informed consent was obtained. Prior Anticoagulants: The patient has taken Pradaxa (dabigatran), last dose was 2 days prior to procedure. ASA Grade Assessment: III - A patient with severe systemic disease. After reviewing the risks and benefits, the patient was deemed in satisfactory condition to undergo the procedure. - The egd scope was introduced through the mouth and advanced to the second part of the duodenum. - The upper GI endoscopy was accomplished without difficulty. - The patient tolerated the procedure well. Findings: - The examined esophagus was normal. - The entire examined stomach was normal. - The examined duodenum was normal. Impression: - Normal esophagus. - Normal stomach. - Normal examined duodenum. - No specimens collected. Recommendation: - [facility]. Procedure Code(s): - 42203, Esophagogastroduodenoscopy, flexible, transoral; diagnostic, including collection of specimen(s) by brushing or washing, when performed (separate procedure) Diagnosis Code(s): - D50.9, Iron deficiency anemia, unspecified CPT(R) - 3 copyright [employer]. All Rights Reserved. The CPT codes, CCI edits and ICD codes generated are intended as suggestions and were generated based on input data. These codes are preliminary and upon goat driver review may be revised to meet current compliance and payer requirements. The provider is responsible for the final determination of appropriate codes, and modifiers. Dr. Naila Ho MD This document has been electronically signed. Note Initiated:10/25/2024 Note Completed:10/25/2024 11:22 AM \\[email or web address]\Central\InterfaceData\Data\Provation\Results\LIVE\[id number].pdf
--- NOTE | 2024-10-25 11:29 | GI REPORT ---
[facility] Patient: ANDREWS FIGUEROA : 1945 Sex at : Female Age: 79 Years Procedure: Colonoscopy Date: 10/25/2024 Attending Physician: Naila Ho MD Referring MD: Trung Gibbons MD Indications: - Iron deficiency anemia Medications: - Monitored Anesthesia Care - See the Anesthesia note for documentation of the administered medications Complications: - No immediate complications. Estimated Blood Loss: - Estimated blood loss: None. Procedure: - Prior to the procedure, a History and Physical was performed, and patient medications and allergies were reviewed. The patient's tolerance of previous anesthesia was also reviewed. The risks and benefits of the procedure and the sedation options and risks were discussed with the patient. All questions were answered, and informed consent was obtained. Prior Anticoagulants: The patient has taken Plavix (clopidogrel), last dose was 2 days prior to procedure. ASA Grade Assessment: III - A patient with severe systemic disease. After reviewing the risks and benefits, the patient was deemed in satisfactory condition to undergo the procedure. - Prior to the procedure, a History and Physical was performed, and patient medications and allergies were reviewed. The patient's tolerance of previous anesthesia was also reviewed. The risks and benefits of the procedure and the sedation options and risks were discussed with the patient. All questions were answered, and informed consent was obtained. Prior Anticoagulants: The patient has taken Pradaxa (dabigatran), last dose was 2 days prior to procedure. ASA Grade Assessment: III - A patient with severe systemic disease. After reviewing the risks and benefits, the patient was deemed in satisfactory condition to undergo the procedure. - The adult colonoscope was introduced through the anus and advanced to the cecum, identified by appendiceal orifice and ileocecal valve. - The colonoscopy was performed without difficulty. - The quality of the bowel preparation was evaluated using the BBPS ([place] Bowel Preparation Scale) with scores of: Right Colon = 3, Transverse Colon = 3 and Left Colon = 3 (entire mucosa seen well with no residual staining, small fragments of stool or opaque liquid). The total BBPS score equals 9. - The ileocecal valve, appendiceal orifice, and rectum were photographed. Findings: - Multiple sessile and pedunculated, non-bleeding polyps were found in the sigmoid colon, descending colon, transverse colon and ascending colon. The polyps were small in size. Because she has only been off plavix and pradaxa these polyps were left in place - The exam was otherwise without abnormality on direct and retroflexion views. Impression: - Multiple, non-bleeding polyps in the sigmoid colon, in the descending colon, in the transverse colon and in the ascending colon. Decision will need to be made about repeat exam in the future for polypectomy off anticoagulants. Doubtful these will cause any issues before 10-15 years so will discuss with patient. None of these are the cause for her anemia - The examination was otherwise normal on direct and retroflexion views. - No specimens collected. Recommendation: - [facility]. - Resume previous diet today. - To visualize the small bowel, perform video capsule endoscopy which will need to be done as an outpatient Procedure Code(s): - 10089, Colonoscopy, flexible; diagnostic, including collection of specimen(s) by brushing or washing, when performed (separate procedure) Diagnosis Code(s): - D50.9, Iron deficiency anemia, unspecified - D12.5, Benign neoplasm of sigmoid colon - D12.4, Benign neoplasm of descending colon - D12.3, Benign neoplasm of transverse colon (hepatic flexure or splenic flexure) - D12.2, Benign neoplasm of ascending colon CPT(R) - 202 copyright [employer]. All Rights Reserved. The CPT codes, CCI edits and ICD codes generated are intended as suggestions and were generated based on input data. These codes are preliminary and upon accounting analyst review may be revised to meet current compliance and payer requirements. The provider is responsible for the final determination of appropriate codes, and modifiers. Dr. Naila Ho MD This document has been electronically signed. Note Initiated:10/25/2024 Note Completed:10/25/2024 11:28 AM \\[email or web address]\Central\InterfaceData\Data\Provation\Results\LIVE\[id number].pdf
--- NOTE | 2024-10-25 12:05 | XCELERA ---
[id number]\[email or web address]_[id number]
[2024-10-25] MEDS: PROPOFOL IV EMULSION 10 MG/ML 20 ML VIAL IV ONE (12:38)
[2024-10-25] MEDS: LIDOCAINE 2% 2 ML VIAL/AMP(20MG/ML) INFIL ONE (12:38)
--- NOTE | 2024-10-25 12:59 | Electrocardiogram Report ---
Test Reason : Blood Pressure : */* mmHG Vent. Rate : 63 BPM Atrial Rate : 63 BPM P-R Int : 192 ms QRS Dur : 92 ms QT Int : 436 ms P-R-T Axes : 87 21 101 degrees QTcB Int : 446 ms Normal sinus rhythm Left ventricular hypertrophy with repolarization abnormality ( Sokolow-Guerrero ) Abnormal ECG When compared with ECG of 13-Sep-2021 12:12, Sinus rhythm has replaced Electronic atrial pacemaker Nonspecific T wave abnormality now evident in Anterior leads Confirmed by Joseph Dixon ([id number]) on 10/25/2024 12:58:55 PM Referred By: REFERRED SELF Confirmed By: Joseph Dixon
--- NOTE | 2024-10-25 14:20 | Anesthesiology Progress Note ---
Date of Service October 25, 2024 Anesthesia Post Procedure Vital Signs Vital Signs: Temp Pulse Pulse Pulse Resp BP BP 10/25/24 13:50 63 10/25/24 12:27 37.4 C 63 19 157/63 H 10/25/24 11:59 61 16 157/59 H 10/25/24 11:37 60 16 163/44 H 10/25/24 11:23 60 16 108/33 L 10/25/24 10:33 37 C 61 20 148/73 H 10/25/24 08:25 10/25/24 07:22 36.7 C 65 18 171/74 H 10/25/24 06:26 60 10/25/24 02:58 37.3 C 60 16 118/60 10/24/24 22:36 36.5 C 58 L 18 160/68 H 10/24/24 22:22 10/24/24 19:45 36.8 C 63 16 173/77 H 10/24/24 16:47 90 10/24/24 15:40 37.5 C 62 131/68 Pulse Ox O2 Del Method O2 Flow Rate 10/25/24 13:50 10/25/24 12:27 91 Room Air 10/25/24 11:59 93 Room Air 10/25/24 11:37 93 Room Air 10/25/24 11:23 98 Room Air 10/25/24 10:33 91 Room Air 10/25/24 08:25 Nasal Cannula 2 10/25/24 07:22 88 L Nasal Cannula 10/25/24 06:26 10/25/24 02:58 93 Room Air 10/24/24 22:36 93 Room Air 10/24/24 22:22 Nasal Cannula 2 10/24/24 19:45 95 Room Air 10/24/24 16:47 10/24/24 15:40 97 Nasal Cannula 1 Transfer of Care Handoff Completed per policy Notes Mental Status: alert / awake / arousable Patient Amnestic to Procedure: Yes Nausea / Vomiting: adequately controlled Pain: adequately controlled Airway Patency, RR, SpO2: stable & adequate BP & HR: stable & adequate Hydration State: stable & adequate Anesthetic Complications: no major complications apparent and Pt Satisfied with anesthetic care
[2024-10-25] MEDS: NITROFURANTOIN MONOHYDRATE 100 MG CAP PO STA (21:37)
[2024-10-26 06:48] LABS: Hematocrit (blood only) 28.5 % (37.0-47.0); Hemoglobin 8.6 g/dl (12.0-16.0); Mean Corpuscular Hemoglobin 27.0 pg (25.0-34.0); Mean Corpuscular Volume 89.3 fL (80.0-100.0); Platelet Count 227 K/uL (130-400); RDW Standard Deviation 56.4 fL (36.4-46.3); Red Blood Count 3.19 M/uL (4.20-5.40); White Blood Count 6.20 K/ul (4.8-10.8)
[2024-10-26 07:07] LABS: Anion Gap 6.0 (3-11); Blood Urea Nitrogen 19.0 mg/dl (6-23); Calcium 8.6 mg/dl (8.6-10.3); Carbon Dioxide 33.0 mmol/L (21-32); Chloride 102.0 mmol/L (98-107); Creatinine Clr Calc Pharmacy 40.5 ml/min; Glucose 95.0 mg/dl (70-99(Fasting)); Potassium 3.3 mmol/L (3.5-5.1); Sodium 141.0 mmol/L (136-145)
[2024-10-26 08:03] VITALS: RESP 20; TEMP 98.4; O2SAT 88
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
[2024-10-26 10:00] VITALS: BP 157/63; PULSE 65
== END 2024-10-26 11:59 | disposition home or self-care (01) | DRG 812 ==
LOC: SUATTDRO → ED 18:29 → SUATTDRO 23:26 → 2E 23:26